=== PATIENT | female | born 1945 | race Caucasian/White ===

== ENCOUNTER → 2018-05-18 11:31 | Outpatient (CLI) | payer MEDICARE, OTHER, SELFPAY ==
--- NOTE | 2018-05-18 | DI.MRI.S_ITS ---
PROCEDURE: MR LUMBAR SPINE WO CON INDICATIONS: LUMBAR SPINE PAIN TECHNIQUE: Noncontrast sagittal T1 spin echo and T2 fast echo, sagittal STIR, axial T1 and T2 fast spin echo through the lumbar spine. In cases with scoliosis, additional coronal T2 fast spin echo may be performed. COMPARISON: [facility], , L-SPINE WITHOUT CONTRAST, 05/05/2015, 13:44. FINDINGS: Image quality: Excellent. Alignment and Curvature: No plain films are available for comparison, for numbering purposes. Thus, for the purposes of this examination, 5 lumbar type vertebral bodies will be presumed. This should be confirmed with plain films, prior to any lumbar spinal intervention. There is mild grade 1 retrolisthesis of L1 on L2 and L2 on L3. Mild grade 1 anterolisthesis of L4 on L5. Mild grade 1 retrolisthesis of L5 on S1. Bone Marrow: Marrow is of normal overall signal. No acute vertebral body compression fractures. Mild reactive signal within the endplates adjacent to the T11-T12, T12-L1, L1-L2, L2-L3, L3-L4, L4-L5, and L5-S1 intervertebral discs, which has progressed slightly. Large T11 hemangioma. Spinal Cord: Conus medullaris terminates at the lower L2 level. Visualized cord demonstrates normal signal and size. Paraspinous Soft Tissues: No paravertebral masses. T12-L1: Moderate disc desiccation and moderate diffuse disc bulge with superimposed small broad-based left far lateral protrusion. Moderate disc height loss. Mild facet hypertrophy. Mild canal stenosis. Moderate left and mild right foraminal stenosis. No change. L1-L2: Moderate disc height loss and desiccation. Mild diffuse disc bulge with superimposed broad-based right far lateral protrusion. Bilateral facet hypertrophy. Mild canal stenosis. Moderate right and mild left foraminal stenosis. No change. L2-L3: Mild disc desiccation. Moderate diffuse disc bulge. Mild disc height loss. Mild bilateral facet and ligamentum flavum hypertrophy. Mild canal stenosis. Mild foraminal stenosis bilaterally. No change. L3-L4: Moderate disc desiccation and diffuse disc bulge. Moderate facet hypertrophy bilaterally. Mild canal stenosis. Mild foraminal stenosis bilaterally. No change. L4-L5: Moderate disc height loss and desiccation. Moderate diffuse disc bulge. Moderate facet and ligamentum flavum hypertrophy. Increased, moderate canal stenosis. Increased, severe right foraminal stenosis. No change in moderate left foraminal stenosis. Mild flattening deformity of the right L4 nerve root within the neural foramen. L5-S1: Moderate disc desiccation and disc height loss. Moderate diffuse disc bulge. Moderate facet hypertrophy bilaterally. Mild canal stenosis. No change in moderate left and mild right foraminal stenosis. IMPRESSION: 1. Multilevel degenerative disc and facet disease, as well as ligamentum flavum hypertrophy. 2. Increased, moderate L4-L5 canal stenosis. Increased, severe right L4-L5 foraminal stenosis with flattening deformity of the right L4 nerve root within the neural foramen. Recommend correlation with clinical symptoms to ascertain relevance of this finding. 3. Otherwise, no significant change in multilevel canal and foraminal stenoses. Dictated by: Serina Angeles M.D. on 05/18/2018 at 13:49 Approved by: Serina Angeles M.D. on 05/18/2018 at 13:54
== END ==
PROVIDERS: Family Provider Physician Assistant Medical; PCP Physician Assistant Medical; Visit Provider Physical Medicine & Rehabilitation Pain Medicine
DX: M51.36 Other intervertebral disc degeneration, lumbar region (principal); M51.37 Other intervertebral disc degeneration, lumbosacral region; M48.061 Spinal stenosis, lumbar region without neurogenic claudication; M54.5 Low back pain
CPT/HCPCS: 72148

== ENCOUNTER → 2018-10-06 11:30 | Outpatient (CLI) | payer MEDICARE, OTHER, SELFPAY ==
--- NOTE | 2018-10-06 11:31 | DI.MG.S_ITS ---
BILATERAL DIGITAL SCREENING MAMMOGRAM 3D/2D WITH CAD: 10/06/2018 CLINICAL: Routine screening. Comparison is made to exams dated: 08/01/2017 mammogram - [facility], 12/29/2015 mammogram, 11/29/2014 mammogram, and 07/03/2013 mammogram - [facility]. There are scattered fibroglandular elements in both breasts. Current study was also evaluated with a Computer Aided Detection (CAD) system. No significant masses, calcifications, or other findings are seen in either breast. There has been no significant interval change. IMPRESSION: NEGATIVE There is no mammographic evidence of malignancy. A 1 year screening mammogram is recommended. This exam was interpreted at Station ID: [id number]. NOTE: For mammograms, a report in lay terms will be sent to the patient. Approximately 15% of breast malignancies will not be visualized mammographically. In the management of a palpable breast mass, a negative mammogram must not discourage biopsy of a clinically suspicious lesion. Electronically Signed By: Isabel rutledge/romario:10/08/2018 16:04:15 letter sent: Normal Exam ACR BI-RADS Category 1: Negative 3341F
== END ==
PROVIDERS: Family Provider Physician Assistant Medical; PCP Physician Assistant Medical; Visit Provider Physician Assistant Medical
DX: Z12.31 Encounter for screening mammogram for malignant neoplasm of breast (principal)
CPT/HCPCS: 77063; 77067

== ENCOUNTER → 2019-11-02 10:11 | Outpatient (CLI) | payer MEDICARE, OTHER, SELFPAY ==
--- NOTE | 2019-11-02 | DI.MG.S_ITS ---
BILATERAL DIGITAL SCREENING MAMMOGRAM 3D/2D WITH CAD: 11/02/2019 CLINICAL: Routine screening. Comparison is made to exams dated: 10/06/2018 mammogram, 08/01/2017 mammogram - [facility], and 12/29/2015 mammogram - [facility]. There are scattered fibroglandular elements in both breasts. Current study was also evaluated with a Computer Aided Detection (CAD) system. No significant masses, calcifications, or other findings are seen in either breast. There has been no significant interval change. IMPRESSION: NEGATIVE There is no mammographic evidence of malignancy. A 1 year screening mammogram is recommended. This exam was interpreted at Station ID: [id number]. NOTE: For mammograms, a report in lay terms will be sent to the patient. Approximately 15% of breast malignancies will not be visualized mammographically. In the management of a palpable breast mass, a negative mammogram must not discourage biopsy of a clinically suspicious lesion. Electronically Signed By: Brett cassidy/romario:11/04/2019 13:19:34 letter sent: Normal Exam ACR BI-RADS Category 1: Negative 3341F
== END ==
PROVIDERS: Family Provider Physician Assistant Medical; PCP Physician Assistant Medical; Visit Provider Physician Assistant Medical
DX: Z12.31 Encounter for screening mammogram for malignant neoplasm of breast (principal)
CPT/HCPCS: 77063; 77067

== ENCOUNTER → 2020-11-27 11:52 | Outpatient (CLI) | payer MEDICARE, OTHER, SELFPAY ==
--- NOTE | 2020-11-27 | DI.MG.S_ITS ---
BILATERAL DIGITAL SCREENING MAMMOGRAM 3D/2D WITH CAD: 11/27/2020 CLINICAL: Routine screening. Comparison is made to exams dated: 11/02/2019 mammogram, 10/06/2018 mammogram, and 08/01/2017 mammogram - [facility]. There are scattered fibroglandular elements in both breasts. Current study was also evaluated with a Computer Aided Detection (CAD) system. No significant masses, calcifications, or other findings are seen in either breast. There has been no significant interval change. IMPRESSION: NEGATIVE There is no mammographic evidence of malignancy. A 1 year screening mammogram is recommended. This exam was interpreted at Station ID: [id number]. NOTE: For mammograms, a report in lay terms will be sent to the patient. Approximately 15% of breast malignancies will not be visualized mammographically. In the management of a palpable breast mass, a negative mammogram must not discourage biopsy of a clinically suspicious lesion. Electronically Signed By: Ernst morel/romario:11/27/2020 12:20:57 letter sent: Normal Exam ACR BI-RADS Category 1: Negative 3341F
== END ==
PROVIDERS: Family Provider Physician Assistant Medical; PCP Physician Assistant Medical; Referring Provider Physician Assistant Medical; Visit Provider Physician Assistant Medical
DX: Z12.31 Encounter for screening mammogram for malignant neoplasm of breast (principal)
CPT/HCPCS: 77063; 77067

== ENCOUNTER → 2021-05-07 07:48 | Outpatient (CLI) | payer MEDICARE, OTHER, SELFPAY ==
--- NOTE | 2021-05-07 07:49 | DI.ECHO.S_ITS ---
[place] [facility]---------+ [facility] +---------+ : : [address] : [place] : : : : [id number] : : : : Phone: [phone] Echocardiogram Report + + :Name: OK OY Study Date: 05/07/2021 Height: 68 in : :[facility] ReadingLocation: Weight: 250 lb : : Gender: Female BSA: 2.2 m2 : :: 1945 Age: 75 yrs BP: 170/96 mmHg: :Reason For Study: Hypertension : :Ordering Physician: PAULINA, : :ZAINAB Performed By: Oleg Mart : :Referring: ZAINAB GALLARDO : + + Interpretation Summary The left ventricle is normal in size and wall thickness. Left ventricular systolic function is normal. The ejection fraction is estimated to be 60-65%. There are no focal wall motion abnormalities. Diastolic parameters suggest probable normal left ventricular diastolic function and normal filling pressures. The right ventricle is normal in size and function. The right ventricular systolic pressure is estimated to be at least 43 mmHg based on an estimated right atrial pressure of 15 mm Hg. The left atrium is moderately dilated. The right atrium is normal in size. There is no significant valvular heart disease. The aortic root is normal size. Procedure: A two-dimensional transthoracic echocardiogram with color flow and Doppler was performed. The study quality was technically adequate. There is no prior echocardiogram noted for this patient. The patient was in sinus rhythm with heart rates between 55-61 bpm during the exam. Left Ventricle: The left ventricle is normal in size and wall thickness. Left ventricular systolic function is normal. The ejection fraction is estimated to be 60-65%. There are no focal wall motion abnormalities. Diastolic parameters suggest probable normal left ventricular diastolic function and normal filling pressures. Right Ventricle: The right ventricle is normal in size and function. Atria: The left atrium is moderately dilated. The right atrium is normal in size. There is no Doppler evidence for an interatrial shunt. Mitral Valve: The mitral valve is normal in structure and function. There is trace mitral regurgitation. Aortic Valve: The aortic valve is normal in structure and function. There is trace aortic regurgitation. Tricuspid Valve: The tricuspid valve is normal in structure and function. There is mild tricuspid regurgitation. The right ventricular systolic pressure is estimated to be at least 43 mmHg based on an estimated right atrial pressure of 15 mm Hg. Pulmonic Valve: The pulmonic valve is not well seen, but is grossly normal. There is a trace or physiologic amount of pulmonic regurgitation. There is no significant valvular heart disease. Great Vessels: The aortic root is normal size. The dimensions of the ascending aorta are normal. The IVC is dilated (diameter is greater than 2.1 cm) and it collapses less than 50% with a sniff. This suggests a high right atrial pressure of 15 mm Hg. Pericardium/ Pleura There is no pericardial effusion. There is no pleural effusion. MMode/2D Measurements & Calculations LVIDd: 4.4 cm LVOT diam: 1.9 cm LVIDs: 3.0 cm Ao root diam: 3.3 cm FS: 32.9 % asc Aorta Diam: 3.1 cm IVSd: 0.89 cm LVPWd: 0.79 cm LV sibley. diameter/BSA (cm/m^2): 2.0 LV sys. diameter/BSA (cm/m^2): 1.3 LA A2 area: 29.2 cm2 RA long axis: 5.6 cm LA A4 area: 22.2 cm2 RA area: 19.2 cm2 LA length (vol): 5.8 cm RA vol: 55.9 ml LA vol: 94.4 ml RA : 24.9 ml/m2 LA vol index: 42.0 ml/m2 IVC diam: 2.2 cm TAPSE: 2.8 cm Doppler Measurements & Calculations Ao V2 max: 166.8 cm/sec LVOT Max Brice: 121.2 cm/sec Ao V2 mean: 117.4 cm/sec LV V1 max P.9 mmHg Ao max P.1 mmHg LV V1 VTI: 31.2 cm Ao mean P.1 mmHg JOLANTA(I,D): 2.1 cm2 Ao V2 VTI: 39.3 cm JOLANTA(V,D): 2.0 cm2 sev ratio: 0.79 JOLANTA indexed to BSA (cm^2/m^2): 0.95 MV E max brice: 120.2 cm/sec TR max brice: 264.2 cm/sec MV A max brice: 93.5 cm/sec TR max P.9 mmHg MV E/A: 1.3 PA pr(Accel): 28.5 mmHg Med Peak E' Brice: 9.9 cm/sec E/E' med: 12.1 Lat Peak E' Brice: 10.6 cm/sec E/E' lat: 11.3 E/e' average: 11.7 MV dec time: 0.23 sec SV(LVOT): 84.2 ml Reading Physician:02:08 PM
--- NOTE | 2021-05-07 07:50 | DI.MRI.S_ITS ---
PROCEDURE: MR HEAD/BRAIN WO/W CON INDICATIONS: APHASIA TECHNIQUE: Noncontrast axial T1 spin echo, axial T2 fast spin echo, sagittal and axial FLAIR, coronal T2 fast spin echo, axial gradient echo, axial diffusion and ADC through the brain. After the administration of contrast, axial and coronal T1 spin echo with fat saturation through the brain. COMPARISON: None. FINDINGS: Image quality: Excellent. CSF spaces: Basal cisterns are patent. No extra-axial fluid collections. Ventricles are normal in size and shape. Brain: No midline shift. No intracranial bleeds or masses. No abnormal intracranial enhancement. There is cerebral volume loss for age. There is periventricular white matter chronic small vessel ischemic change. The brainstem appears normal. Diffusion-weighted images demonstrate no acute ischemic insults. No chronic ischemic insults. Normal intravascular flow voids are present. Skull and face: Calvarial marrow is normal in signal. Orbits appear normal. Note is made of bilateral lens replacements. Sinuses: Sinuses and mastoids appear clear. IMPRESSION: Normal brain for age, with mild chronic small vessel ischemic change and mild brain parenchymal volume loss. No findings of acute or subacute infarction can be seen. No masses or abnormal enhancement can be seen. Dictated by: Lberon Giron M.D. on 05/07/2021 at 9:37 Approved by: Lebron Giron M.D. on 05/07/2021 at 9:38
== END ==
PROVIDERS: Family Provider Physician Assistant Medical; PCP Physician Assistant Medical; Referring Provider Physician Assistant Medical; Visit Provider Physician Assistant Medical
DX: R47.01 Aphasia (principal); I07.1 Rheumatic tricuspid insufficiency; I10 Essential (primary) hypertension
CPT/HCPCS: 70553; 93306

== ENCOUNTER → 2021-09-29 11:35 | Outpatient (CLI) | payer MEDICARE, OTHER, SELFPAY ==
[2021-09-29 14:46] LABS: COVID19 -Nasal RAPID Negative (Negative)
== END ==
PROVIDERS: Family Provider Physician Assistant Medical; PCP Physician Assistant Medical; Visit Provider Physician Assistant
DX: Z20.822 Contact with and (suspected) exposure to COVID-19 (principal)
CPT/HCPCS: 87635; C9803

== ENCOUNTER → 2021-10-01 08:39 | Outpatient (CLI) | payer MEDICARE, OTHER, SELFPAY ==
--- NOTE | 2021-10-01 | DI.NM.S_ITS ---
PROCEDURE: NM JAMIE PERF SPECT R&S PHARM Rest and pharmacological stress myocardial perfusion SPECT with gated imaging and ejection fraction RADIOPHARMACEUTICAL: 14.3 mCi Tc-99m tetrafosmin IV at rest and 26.2 mCi Tc-99m tetrafosmin IV at peak effect of pharmacological stress. [id number] was performed. INDICATIONS: Longstanding persistent atrial fibrillation TECHNIQUE: Radiopharmaceutical was injected at peak stress test, and also at rest. SPECT images were obtained. SPECT myocardial perfusion images were displayed in short axis, horizontal long axis, and vertical long axis views. Gated images were reviewed using [employer] software. COMPARISON: None. CARDIAC STRESS: A pharmacologic stress test was performed under the supervision of an attending staff, using an infusion of lexiscan 0.4m IV X1 . Hemodynamic data: There is normal blood pressure and heart rate response to pharmacologic stress. Symptoms: The patient denied anginal chest pain. Aminophylline: none EKG: Resting ECG showed rate controlled atrial fibrillation. No diagnostic changes of ischemia with lexiscan. FINDINGS: Raw data: There is good myocardial uptake of radiotracer. No significant motion artifacts. Rkyq-xg-wwlkz ratio is 0.31 (normal is less than 0.38 for tetrafosmin tracer). Left ventricle function: Gated images demonstrate normal left ventricular wall thickening. No segmental wall motion abnormalities. No transient ischemic dilation; TID is 0.91 (normal less than 1.3). Left ventricle resting end diastolic volume is 92 mL. Left ventricle stress ejection fraction is 67%; normal range is above 45%. Myocardial perfusion: There is normal distribution of activity in the right and left ventricular myocardium. No fixed or reversible perfusion defects. IMPRESSION: Low risk, normal pharmaceutical nuclear stress test 1) No perfusion evidence of ischemia or infarction. 2) Normal left ventricular size, wall motion, and systolic function (EF post stress 67%). 3) No ECG evidence of ischemia. 4) No angina during the study. 5) No prior nuclear stress test available for comparison. Dictated by: Christina Keith MD on 10/01/2021 at 16:55 Approved by: Christina Keith MD on 10/01/2021 at 16:57
== END ==
PROVIDERS: Family Provider Physician Assistant Medical; PCP Physician Assistant Medical; Referring Provider Internal Medicine Cardiovascular Disease; Visit Provider Internal Medicine Cardiovascular Disease
DX: I48.11 Longstanding persistent atrial fibrillation (principal)
CPT/HCPCS: 78452; 93017; A9502; J2785

== ENCOUNTER → 2022-06-02 12:55 | Outpatient (CLI) | payer MEDICARE, OTHER, SELFPAY ==
--- NOTE | 2022-06-02 | DI.MG.S_ITS ---
BILATERAL DIGITAL SCREENING MAMMOGRAM 3D/2D WITH CAD: 06/02/2022 CLINICAL: Routine screening. Comparison is made to exams dated: 11/27/2020 mammogram, 11/02/2019 mammogram, and 10/06/2018 mammogram - [facility]. There are scattered fibroglandular elements in both breasts. Current study was also evaluated with a Computer Aided Detection (CAD) system. No significant masses, calcifications, or other findings are seen in either breast. There has been no significant interval change. IMPRESSION: NEGATIVE There is no mammographic evidence of malignancy. A 1 year screening mammogram is recommended. Based on the Tyrer Cuzick model (a risk assessment model) the patient's lifetime risk is 2.8% and her 10 year risk is 2.8%. According to the ACR, ACS, and NCCN guidelines, an annual breast MRI exam along with mammogram is recommended if the patient's lifetime risk is 20% or greater. This exam was interpreted at Station ID: [id number]. NOTE: For mammograms, a report in lay terms will be sent to the patient. Approximately 15% of breast malignancies will not be visualized mammographically. In the management of a palpable breast mass, a negative mammogram must not discourage biopsy of a clinically suspicious lesion. Electronically Signed By: Homero cain/romario:06/02/2022 15:06:34 letter sent: Normal Exam ACR BI-RADS Category 1: Negative 3341F
== END ==
PROVIDERS: Family Provider Physician Assistant Medical; PCP Physician Assistant Medical; Referring Provider Physician Assistant Medical; Visit Provider Physician Assistant Medical
DX: Z12.31 Encounter for screening mammogram for malignant neoplasm of breast (principal)
CPT/HCPCS: 77063; 77067

== ENCOUNTER 2024-03-21 07:46 | Day surgery (SDC) | payer MEDICARE, OTHER, SELFPAY ==
[2024-03-21] MEDS: LACTATED RINGERS 1,000 ML 42 ML IV (08:23)
[2024-03-21 08:51] VITALS: BP 140/90; PULSE 105; RESP 18; TEMP 36.7; O2SAT 100
--- NOTE | 2024-03-21 09:23 | PM.HP.1 ---
History of Present Illness History of Present Illness Date Patient Seen: 03/21/24 Time Patient Seen: 09:24 Chief complaint: [facility] [place] Narrative: h/o colon polyps, last scope 5 years ago. Did not stop her Eliquis. no current symptoms. [facility] Social History Smoking Status: Former smoker alcohol intake: current Meds Home Medications and Allergies Home Medications Medication Instructions Recorded Confirmed Type ranitidine HCl 150 mg tablet 150 mg PO QDAY ##0 02/01/18 03/21/24 History amitriptyline 10 mg PO PRN Insomnia 03/21/24 History apixaban 5 mg tablet (Eliquis) 5 mg PO BID 03/21/24 03/21/24 History celecoxib 200 mg capsule 200 mg PO DAILY 03/21/24 03/21/24 History doxycycline monohydrate 100 mg 100 mg PO BID 03/21/24 03/21/24 History capsule metoprolol tartrate 25 mg tablet 25 mg PO BID 03/21/24 03/21/24 History pregabalin 200 mg capsule 200 mg PO BID 03/21/24 03/21/24 History rosuvastatin 20 mg tablet 20 mg PO ONCE PM 03/21/24 03/21/24 History tramadol 50 mg tablet 50 mg PO 03/21/24 History Allergies Allergy/AdvReac Type Severity Reaction Status Date / Time codeine [CODEINE] Allergy Intermediate ITCHING, Verified 03/21/24 08:26 NAUSEA Review of Systems Review of Systems ROS: Yes All systems reviewed with the patient and are negative except as otherwise documented Exam Vital Signs (past 8 hours): - 03/21/24 08:51 Temperature 98.1 F Pulse Rate 105 H Respiratory Rate 18 Blood Pressure 140/90 Pulse Oximetry 100 Oxygen Delivery Method Room Air Oxygen Delivery Method Room Air Const General: cooperative, healthy appearing and comfortable HENLA Head: normocephalic and atraumatic Eyes Sclera: sclerae normal Neck Neck: trachea midline and No JVD Resp Effort & Inspection: normal respiratory effort and able to speak in complete sentences Cardio Rate: regular rate Rhythm: abnormal rhythm (afib) GI Palpation: soft and No tender Skin General: atrophy and dry skin Neuro General: patient alert, patient awake and patient oriented x3 Cranial Nerves: tongue midline Psych Mental Status: mental status grossly normal Attitude: cooperative Judgment: judgment good Assessment & Plan Assessment & Plan narrative: History of colon polyps, actively anticoagulated. Plan: colonoscopy with anesthesia. Time Spent With Patient Time with patient: less than 30 minutes
--- NOTE | 2024-03-21 09:58 | PM.OP.COLON ---
Operative Date/Time/Diagnoses Date of procedure: 03/21/24 Time of procedure: 09:58 Pre-op diagnosis: History of colon polyps Post-op diagnosis: same Procedure & Clinicians Study performed: Colonoscopy with anesthesia Same procedure as scheduled: Yes Indications: History of colon polyps Surgeon: Mckenna Hayden Procedure Notes Procedure in detail: Preop diagnosis: History of colon polyps Postop diagnosis: Same Operative procedure: Colonoscopy with anesthesia Surgeon: Agueda Hayden MD Findings: Moderate-sized diverticuli of the descending colon. No polyps identified Procedure: Patient placed in a lateral position. Rectal exam performed showing normal tone no masses. Colonoscope inserted into the rectum and advanced to ileocecal valve with minimal difficulty. The prep was poor quality but the majority of the mucosal lining could be seen, however small polyps could have been overlooked. Retroflex was included in the rectum Impression: Diverticulosis of the descending colon of moderate size, no polyps Plan repeat colonoscopy in 5 years due to self history of colon polyps Findings: divertiulosis Post-procedure Recommendations: Colonoscopy in 5 years Follow up: as needed Disposition: PACU
[2024-03-21 10:01] VITALS: BP 121/69; PULSE 94; RESP 15; TEMP 36.6; O2SAT 97
[2024-03-21 10:05] VITALS: BP 108/68; PULSE 92; RESP 15; O2SAT 97
[2024-03-21 10:10] VITALS: BP 111/70; PULSE 82; RESP 15; O2SAT 99
[2024-03-21 10:18] VITALS: BP 135/80; PULSE 98; RESP 16; TEMP 36.6; O2SAT 98
== END 2024-03-21 10:34 | disposition home or self-care (01) ==
PROVIDERS: Family Provider Physician Assistant Medical; PCP Physician Assistant Medical; Referring Provider Surgery; Visit Provider Surgery
PROC: 0DJD8ZZ Inspection of Lower Intestinal Tract, Via Natural or Artificial Opening Endoscopic (ICD-10-PCS; CPT 45378; principal; 2024-03-21 08:45)
DX: Z12.11 Encounter for screening for malignant neoplasm of colon (principal); Z86.010 Personal history of colon polyps; K57.30 Diverticulosis of large intestine without perforation or abscess without bleeding
CPT/HCPCS: G0105; J2704

== ENCOUNTER → 2025-01-06 08:28 | Outpatient (CLI) | payer MEDICARE, OTHER, SELFPAY ==
--- NOTE | 2025-01-06 08:30 | DI.ECHO.S_ITS ---
[place] [facility]---------+ [facility] : : [address] : : [place] : : [id number] : : Phone: [phone] Echocardiogram Report + + :Name: OK YO Study Date: 01/06/2025 Height: 67 in : :[facility] ReadingLocation: Weight: 250 lb : : Gender: Female BSA: 2.2 m2 : :: 1945 Age: 79 yrs BP: 152/92 mmHg: :Reason For Study: ATRIAL FIBRILLATION : :Ordering Physician: ELIZABETH, : :DENISE Performed By: Abhinav Rodriguez : :Referring: DENISE KEITH : + + Interpretation Summary 1) Normal left ventricular thickness, size, wall motion, and systolic function (EF 55-60%). 2) Mildly enlarged right ventricle with normal function. 3) Severe left atrial enlargement. 4) There is moderate tricuspid regurgitation. 5) The right ventricular systolic pressure is estimated to be at least 53 mmHg based on an estimated right atrial pressure of 8 mm Hg. 5) Compared to the Echo done 05/07/2021, severe left atrial enlargement is present on this study. Procedure: A two-dimensional transthoracic echocardiogram with color flow and Doppler was performed. The study quality was technically good. Comparison is made with the echocardiogram of 05/07/2021. The patient was in atrial fibrillation with heart rates between 76-103 bpm during the exam. Left Ventricle: The left ventricle is normal in size. There is normal left ventricular wall thickness. There is no ventricular septal defect visualized. The ejection fraction is estimated to be 55-60%. There are no focal wall motion abnormalities. Diastolic function could not be accurately assessed due to atrial fibrillation. Right Ventricle: The right ventricle is mildly dilated. The right ventricular systolic function is normal. Atria: The left atrium is severely dilated. The right atrium is moderately dilated. There is no Doppler evidence for an interatrial shunt. Mitral Valve: There is mild mitral annular calcification. The mitral valve leaflets appear normal. There is no evidence of stenosis, fluttering, or prolapse. There is mild mitral regurgitation. Aortic Valve: The aortic valve is trileaflet. The aortic valve opens well. There is no aortic valve stenosis. No aortic regurgitation is present. Tricuspid Valve: The tricuspid valve leaflets are thin and pliable. There is moderate tricuspid regurgitation. The right ventricular systolic pressure is estimated to be at least 53 mmHg based on an estimated right atrial pressure of 8 mm Hg. Pulmonic Valve: The pulmonic valve leaflets are thin and pliable; valve motion is normal. There is no pulmonic valvular regurgitation. Great Vessels: The aortic root is normal size. The dimensions of the ascending aorta are normal. The pulmonary artery is normal size. The IVC is dilated (diameter is greater than 2.1 cm) yet it collapses greater than 50% with a sniff. This suggests a right atrial pressure of 8 mm Hg. Pericardium/ Pleura There is no pericardial effusion. There is no pleural effusion. MMode/2D Measurements & Calculations LVIDd: 4.2 cm LVOT diam: 1.9 cm LVIDs: 3.0 cm Ao root diam: 3.4 cm FS: 28.1 % asc Aorta Diam: 3.2 cm EPSS: 0.71 cm IVSd: 0.94 cm LVPWd: 0.94 cm LV sibley. diameter/BSA (cm/m^2): 1.9 LV sys. diameter/BSA (cm/m^2): 1.4 LA A2 area: 36.0 cm2 RA long axis: 6.8 cm LA A4 area: 33.2 cm2 RA area: 28.1 cm2 LA length (vol): 6.9 cm RA vol: 98.7 ml LA vol: 145.9 ml RA : 44.4 ml/m2 LA vol index: 65.6 ml/m2 IVC diam: 2.6 cm RVD1 (basal): 4.2 cm RVD2 (mid): 3.0 cm TAPSE: 2.0 cm Doppler Measurements & Calculations Ao V2 max: 146.1 cm/sec LVOT Max Brice: 116.2 cm/sec Ao V2 mean: 107.9 cm/sec LV V1 max P.4 mmHg Ao max P.5 mmHg LV V1 VTI: 26.4 cm Ao mean P.0 mmHg JOLANTA(I,D): 2.8 cm2 Ao V2 VTI: 26.3 cm JOLANTA(V,D): 2.2 cm2 sev ratio: 1.0 JOLANTA indexed to BSA (cm^2/m^2): 1.3 MV E max brice: 124.5 cm/sec TR max brice: 334.9 cm/sec MV A max brice: 33.0 cm/sec TR max P.9 mmHg MV E/A: 3.8 PA V2 max: 55.9 cm/sec Med Peak E' Brice: 10.6 cm/sec PA V2 mean: 40.9 cm/sec E/E' med: 11.7 PA mean P.73 mmHg Lat Peak E' Brice: 16.4 cm/sec PA pr(Accel): 29.3 mmHg E/E' lat: 7.6 E/e' average: 9.6 MV dec time: 0.12 sec SV(LVOT): 73.3 ml Reading Physician:04:08 PM
[2025-01-06 09:54] LABS: Hematocrit 40.4 % (36-46); Hemoglobin 13.6 g/dL (12.0-16.0); Mean Corpuscular HGB Conc 33.6 % (30-36); Mean Corpuscular Hemoglobin 32.4 PG (26-34); Mean Corpuscular Volume 96.3 fL (80-100); Platelet Count 116 X10^3/uL (150-400); Red Blood Cell Count 4.19 X10^6/uL (4.0-5.2); Red Cell Distribution Width 13.6 % (11.6-14.8); White Blood Cell Count 6.3 X10^3/uL (4.5-11.0)
[2025-01-06 10:17] LABS: BUN Creatinine Ratio 25.6 (6-22); Blood Urea Nitrogen 22 mg/dL (7-17); Calcium 9.7 mg/dL (8.4-10.2); Carbon Dioxide 29 mmol/L (22-32); Chloride 105 mmol/L (98-107); Cholesterol 146 mg/dL (140-199); Estimated Glomerular Filt Rate > 60 mL/min (>60); Glucose 63 mg/dL (80-110); HDL Cholesterol 83 mg/dL (40-60); HEMOLYSIS < 15 (0-50); LDL Cholesterol Calculated 52 mg/dL (<100); Potassium 4.4 mmol/L (3.4-5.1); Sodium 140 mmol/L (137-145); Triglycerides 53 mg/dL (35-150)
== END ==
PROVIDERS: Family Provider Physician Assistant Medical; PCP Physician Assistant Medical; Referring Provider Internal Medicine Cardiovascular Disease; Visit Provider Internal Medicine Cardiovascular Disease
DX: I08.1 Rheumatic disorders of both mitral and tricuspid valves (principal); I48.11 Longstanding persistent atrial fibrillation; E78.5 Hyperlipidemia, unspecified; R06.09 Other forms of dyspnea; I10 Essential (primary) hypertension
CPT/HCPCS: 36415; 80048; 80061; 85027; 93306

== ENCOUNTER → 2025-05-16 15:00 | Outpatient (CLI) | payer MEDICARE, OTHER, SELFPAY ==
--- NOTE | 2025-05-16 15:12 | EKG_ITS ---
[address] [address] Test Date: 2025-05-16 Pat Name: Padma Weathers Department: [facility] Room: Gender: Female Non Emergency Services Ambulance Driver: OMAR : 1945 Requested By: Order Number: [id number] Reading MD: Charlie Chappell Measurements Intervals [place] Rate: 70 P: ME: QRS: -11 QRSD: 90 T: -12 QT: 370 QTc: 399 Interpretive Statements Atrial fibrillation Nonspecific T wave abnormality Electronically Signed On 05-30-2025 8:11:33 PDT by Charlie Chappell
[2025-05-16 16:01] LABS: Add Manual Diff / Slide Review NO; Hematocrit 41.5 % (36-46); Hemoglobin 14.4 g/dL (12.0-16.0); Lymphocytes Absolute Auto 2600 /uL (1100-4500); Mean Corpuscular HGB Conc 34.6 % (30-36); Mean Corpuscular Hemoglobin 33.9 PG (26-34); Mean Corpuscular Volume 97.9 fL (80-100); Platelet Count 127 X10^3/uL (150-400)
[2025-05-16 16:09] LABS: Hemoglobin A1C% w Est Avg Glu 4.9 % (4.0-6.0)
[2025-05-16 16:23] LABS: Albumin 4.6 g/dL (3.5-5.0); Blood Urea Nitrogen 22 mg/dL (7-17); Calcium 9.5 mg/dL (8.4-10.2); Carbon Dioxide 27 mmol/L (22-32); Chloride 104 mmol/L (98-107); Estimated Glomerular Filt Rate > 60 mL/min (>60); Glucose 75 mg/dL (70-99); HEMOLYSIS < 15 (0-50); Potassium 4.2 mmol/L (3.4-5.1); Sodium 140 mmol/L (137-145)
[2025-05-16 16:31] LABS: Prealbumin 19.6 mg/dL (17.6-36.0)
[2025-05-16 16:40] LABS: Vitamin D 25 Hydroxy (D3) 98.3 ng/mL (30.0-100.0)
== END ==
PROVIDERS: Family Provider Physician Assistant Medical; PCP Physician Assistant Medical; Referring Provider Orthopaedic Surgery Adult Reconstructive Orthopaedic Surgery; Visit Provider Orthopaedic Surgery Adult Reconstructive Orthopaedic Surgery
DX: Z01.818 Encounter for other preprocedural examination (principal); E11.9 Type 2 diabetes mellitus without complications; E55.9 Vitamin D deficiency, unspecified; Z01.812 Encounter for preprocedural laboratory examination
CPT/HCPCS: 36415; 80048; 82040; 82306; 83036; 84134; 85025; 93005

== ENCOUNTER 2025-09-11 09:45 | Outpatient (RCR) | payer MEDICARE, OTHER, SELFPAY ==
--- NOTE | 2025-06-30 17:25 | PT.OPPOC ---
Physical, Occupational & Speech Therapy At [facility] Current Diagnoses Lipomatosis, not elsewhere classified (06/30/25) Lymphedema, not elsewhere classified (06/30/25) Unilateral primary osteoarthritis, left hip (06/30/25) Visit Care Team Role Provider Type Kari Nagel PA-C Family Provider Non-Staff Primary Care Provider Specialty: Medical Address: [address] [place] [address] [address], [place], [address] Email: Cameron Bishop MD Attending Provider Physician Referring Provider Specialty: Orthopedics Orthopedic Surgery Address: [address] [place] [address], [phone] Fax: Email: [email or web address] Plan Of Care PT OP: Lymphedema Lower Extremity Start: 06/30/25 14:33 Freq: Status: Active Protocol: Document 06/30/25 14:34 SAK (Rec: 06/30/25 15:38 SAK Laptop) Out-Patient Physical Therapy Visit Information Visit Information Visit Type Initial Evaluation Visit Start Time 14:34 Visit Stop Time 16:00 Visit Number 1 Evaluation Information Evaluation Date 06/30/25 Precautions Precautions recent wounds on shins history falls arthritis Current Condition History of Current Condition Onset Date 2012 Current Complaints bilateral LE lymphedema History of Current Series of surgeries on left foot [id number], as that Condition healed swelling came on, never went away. Also history shanae knees replacements, right AMMON, fractured right hip 2022 ORIF, then revision done 2023. Hoping to have left AMMON soon due to severe pain, using cane to walk, reluctant to use walker. Saw wound care at [facility] recently, wounds on shins healed, has velcro wrap garments shanae ankle to knee. Reports feet not affected by swelling but is swollen from ankles up. . Down 30 lbs, trying to lose another 30. Goes to water aerobics 2x/wk when can. Elevating doesn't improve the swelling. Also walks some for exercise wears compression. Prior Treatments and as above Tests Future Testing and anticipated left AMMON soon by Dr. Bishop Treatments Planned Treatment Goals Patient/Caregiver be able to get left AMMON and be able to manage her edema Goals Patient Questionnaires Lymphedema Life Impact Score Lymphedema Score 48 OP-PT Pain Assessment Location left hip Pain Intensity 5 Posture Evaluation Position Standing Weight Distribution Weight Shifted Right Knee Posture (L) Genu Valgus,(R) Genu Valgus,(L) Genu Recurvatum,(R) Genu Recurvatum Ankle/Foot Posture (L) Pronated,(R) Pronated Foot Arch (L) Low Arch,(R) Low Arch Palpation Assessment Location shanae LE's and UE's Palpation Findings Edema,Tenderness Palpation Details multiple palpable fibrotic nodules UE's and LE's consistent with lipedema Skin Assessment Edema Assessment shanae LE's, UE's Edema Type Non-Pitting Edema Appearance Dimpled,Discolored,Puffy Subjective Edema Tightness Description Hip Goniometric Range of Motion Hip Measured in Degrees shanae Hip ROM WFL Yes Comments pain toward end ranges shanae Knee Goniometric Range of Motion Knee Measured in Degrees shanae Knee ROM WFL Yes Ankle and Foot Goniometric Range of Motion Ankle and Foot Measured in Degrees shanae Ankle/Foot ROM WFL Yes Special Tests Other Special Tests Special Tests Stemmer sign positive shanae feet Lymphedema Measurements Lower Extremity Circumference Measurements Right Affected MT Heads 23.2 cm Mid-foot 22.5 cm Medial Malleolus 27.3 cm 10 cm From Medial 37 cm Malleolus 20 cm From Medial 45.3 cm Malleolus 30 cm From Medial 49.3 cm Malleolus 40 cm From Medial 49.3 cm Malleolus 50 cm From Medial 59.4 cm Malleolus 60 cm From Medial 64 cm Malleolus 70 cm From Medial 71 cm Malleolus 80 cm From Medial 76.5 cm Malleolus Knee Joint 52 cm Left Affected MT Heads 22.7 cm Mid-foot 22.4 cm Medial Malleolus 26.3 cm 10 cm From Medial 39 cm Malleolus 20 cm From Medial 43.8 cm Malleolus 30 cm From Medial 46.2 cm Malleolus 40 cm From Medial 50.4 cm Malleolus 50 cm From Medial 57 cm Malleolus 60 cm From Medial 61.2 cm Malleolus 70 cm From Medial 68 cm Malleolus 80 cm From Medial 87.9 cm Malleolus Knee Joint 51 cm Lymphedema Treatment Manual Lymphatic Drainage Location for shanae LE lipo-lymphedema Comments with patient education technique, issued written handout and given online resource Lymphedema Wrapping Body Location shanae LE's Materials Bioflect XL loaner garment issued; patient assisted in donning, instructed to remove if painful or skin irritated. Can layer with velcro compression wraps. Also issued loaner L donning gloves. Sequential Lymphedema Exercises Comments instructed importance of therapeutic exercise, aquatic exercise especially benficial Compression Garment Assessment Compression Garment educated in correct fit current velcro compression Assessment Details wraps (L and R Ready Wrap) and need to adjust with most compression distally, decreasing proximally. Good fit of loaner Bioflect XL Physical Therapy Assessment Rehab Potential Rehabilitation Good Potential Evaluation Complexity Number of Personal 1-2 Factors/ Comorbidities Number of Body 3 Systems Impaired Clinical Evolving Presentation at Evaluation Impairments Impairments Edema,Pain Goals Two Impairment Lymphedema Life Impact Scale 54% Short Term Goal (STG Decrease score to no greater than 40% as measure of ) improved function and quality of life STG Duration 07/30/25 Assistant Director Of Security Goal (LTG) Decrease score to no greater than 20% as measure of improved function and quality of life LTG Duration 09/29/25 One Impairment lipo-lymphedema shanae LE's Short Term Goal (STG Patient will be instructed in all aspects of lipo- ) lymphedema self-care to include skin care, elevation, self-massage, self-bandaging/compression options, and lipo-lymphedema exercises. STG Duration 07/30/25 [facility]cf Goal (LTG) Decrease patient?s lipo-lymphedema to a stable level ( no increase or decrease greater than 1 cm over the course of 1 week), patient to be independent with all aspects of self-care for lipo-lymphedema, and will obtain appropriate compression garment for lipo- lymphedema management in the home. LTG Duration 09/29/25 Assessment Summary Assessment Patient presents to PT with function-limiting edema with signs and symptoms consistent with lipo-lymphedema . She has an extensive orthopedic surgery history in her LE's which she reports feeling precipitated her LE edema. She is currently awaiting approval and scheduling for a left AMMON, but was sent to this PT for evaluation and treatment of her lymphedema prior to surgery. Her signs and symptoms as above consistent with both lipedema and lymphedema in her LE's and abdomen and after PT evaluation extensive education provided verbally and with written and online resources provided. Part of the patient education was importance of compression and she was issued a loaner pair of Bioflect compression and donning gloves for trial. I feel she would benefit from physical therapy to address her lipo-lymphedema prior to her left AMMON surgery and then for rehab and edema management s/p AMMON surgery. I feel she will benefit from AMMON due the severity of her hip pain and limitations in her mobility; improved activity tolerance and mobility will be helpful for her lipo- lymphedema. Donning compression is already a challenge for this patient due to the arthritis in her hands and limited mobility of her left hip and compression post- op will likely need to be modified, maybe just wearing the lower leg compression wraps initially. In the future she may want to consult with vascular specialist as well as a lipedema surgeon. POC was discussed and patient was in agreement. Physical Therapy Plan Frequency and Duration Frequency of 20 Treatment Duration of 12 treatment (weeks) Plan of Care Start 06/30/25 Date Plan of Care End 09/29/25 Date Next Visit Focus/Plan Next Note Type Treatment Note Next Visit Plan Review treatment components of lipo-lymphedema, evaluate response to Bioflect including taking circumferential measurements. Provide MLD, instruct in ther ex, consider lymphedema bandaging if indicated, continue patient education. Plan of Care Dates Plan of Care Start Date 06/30/25 Plan of Care End Date 09/29/25 Electronically Signed by: Michaela Koroma, PT 06/30/25 [id number] If you are in agreement with this Plan of Care, please return a signed and dated copy. I have reviewed this Plan of Care and certify that the skilled therapy services above are required to meet the patient?s needs. Physician Signature Date Printed Name and Credentials Clinical Instructor Signature Printed Name and Credentials
--- NOTE | 2025-07-07 16:29 | PT.OTN ---
Current Diagnoses Lipomatosis, not elsewhere classified (07/07/25) Lymphedema, not elsewhere classified (07/07/25) Unilateral primary osteoarthritis, left hip (07/07/25) Physical Therapy Treatment Note PT OP: Lymphedema Lower Extremity Start: 06/30/25 14:33 Freq: Status: Active Protocol: Document 07/07/25 14:28 SAK (Rec: 07/07/25 15:08 SAK Laptop) Out-Patient Physical Therapy Visit Information Visit Information Visit Type Initial Evaluation Visit Start Time 14:31 Visit Stop Time 15:58 Visit Number 2 Precautions Precautions recent wounds on shins history falls arthritis OP-PT Subjective Patient Comments Patient Comments Unable to wear the Bioflect due to pain in hip and hands, too difficult to don without assistance. When removed after PT assisted, couldn't really see a difference. Patient reports she is miserable with pain , really wants to get AMMON as soon as she can. She has a sister coming to stay with her first of August and is hoping surgery can be just prior so her sister available to help her with recovery. Therapeutic Exercises Supine Exercises hip ab Equipment Used L2 TB Reps/Minutes 10x SAQ Reps/Minutes 10x5 supine clam Reps/Minutes 10 ball squeeze Reps/Minutes 10 bridge Reps/Minutes 10 quad sets Reps/Minutes 10x Gluteal sets Reps/Minutes 10x Lymphedema Treatment Manual Lymphatic Drainage Location for shanae LE lipo-lymphedema Comments reviewed technique for home Lymphedema Wrapping Body Location shanae LE's Materials Size G Tricofix, Artiflex (3), Comprilan (8x2, 10x2, 12 ) Other instrsuction patient in self bandaging Sequential Lymphedema Exercises Comments ther ex as above Compression Garment Assessment Compression Garment patient did not tolerate donning and doffing Bioflect, Assessment Details advised order larger size for trial Patient Education Lymphedema Pathology reviewed Lymphedema reviewed Prevention Lymphedema reviewed Precautions Compression Garments reviewed Self Manual reviewed Lymphatic Drainage Sequential reviewed Lymphedema Exercises Physical Therapy Assessment Impairments Impairments Edema,Pain Other Concerns Barriers to severe left hip pain and moderate OA bilateral hands Rehabilitation making donning compression garments difficult Goals Two Impairment Lymphedema Life Impact Scale 54% Short Term Goal (STG Decrease score to no greater than 40% as measure of ) improved function and quality of life STG Duration 07/30/25 Assisted Goal (LTG) Decrease score to no greater than 20% as measure of improved function and quality of life LTG Duration 09/29/25 One Impairment lipo-lymphedema shanae LE's Short Term Goal (STG Patient will be instructed in all aspects of lipo- ) lymphedema self-care to include skin care, elevation, self-massage, self-bandaging/compression options, and lipo-lymphedema exercises. STG Duration 07/30/25 Assisted Goal (LTG) Decrease patient?s lipo-lymphedema to a stable level ( no increase or decrease greater than 1 cm over the course of 1 week), patient to be independent with all aspects of self-care for lipo-lymphedema, and will obtain appropriate compression garment for lipo- lymphedema management in the home. LTG Duration 09/29/25 Assessment Summary Assessment Patient c/o frustration with severity of left hip pain. Instructed in LE ther ex mostly isometric for improved tolerance; for strengthening and to facilitate lymphatic flow. Receptive to bandaging shanae LE's today with compression bandaging; applied with patient education technique after MLD with pt LE's elevated. Nu-step x 5 min end of session for further facilitation of lymphatic flow. Patient instructed to keep bandaging on 23hr/day and reapply; recommmend for 2 weeks. Remove bandaging if painful, or if feet swell with bandaging. Also recommended obtain snug shorts to wear over bandaging to prevent sliding down. Patient demonstrated good understanding. Physical Therapy Plan Frequency and Duration Frequency of 20 Treatment Duration of 12 treatment (weeks) Plan of Care Start 06/30/25 Date Plan of Care End 09/29/25 Date Next Visit Focus/Plan Next Note Type Treatment Note Next Visit Plan Evaluate response to compression bandaging. Continue CDT.
--- NOTE | 2025-07-15 16:20 | PT.OTN ---
Current Diagnoses Lipomatosis, not elsewhere classified (07/15/25) Lymphedema, not elsewhere classified (07/15/25) Unilateral primary osteoarthritis, left hip (07/15/25) Physical Therapy Treatment Note PT OP: Lymphedema Lower Extremity Start: 06/30/25 14:33 Freq: Status: Active Protocol: Document 07/15/25 14:31 SAK (Rec: 07/15/25 15:04 SAK Laptop) Out-Patient Physical Therapy Visit Information Visit Information Visit Type Treatment Note Visit Start Time 14:31 Visit Stop Time 15:56 Visit Number 3 Precautions Precautions recent wounds on shins history falls arthritis Current Condition History of Current Condition Onset Date 2012 Current Complaints bilateral LE lymphedema History of Current Series of surgeries on left foot [phone], as that Condition healed swelling came on, never went away. Also history shanae knees replacements, right AMMON, fractured right hip 2022 ORIF, then revision done 2023. Hoping to have left AMMON soon due to severe pain, using cane to walk, reluctant to use walker. Saw [facility] care at [facility] recently, wounds on shins healed, has velcro wrap garments shanae ankle to knee. Reports feet not affected by swelling but is swollen from ankles up. . Down 30 lbs, trying to lose another 30. Goes to water aerobics 2x/wk when can. Elevating doesn't improve the swelling. Also walks some for exercise wears compression. Prior Treatments and as above Tests Future Testing and anticipated left AMMON soon by Dr. Bishop Treatments Planned OP-PT Subjective Patient Comments Patient Comments Got 2XL Bioflect, can don independently. Hasn't self bandaged Lymphedema Measurements Lower Extremity Circumference Measurements Right Affected MT Heads 22 cm Mid-foot 22.2 cm Medial Malleolus 26.5 cm 10 cm From Medial 38.3 cm Malleolus 20 cm From Medial 44.8 cm Malleolus 30 cm From Medial 48.5 cm Malleolus 40 cm From Medial 45.3 cm Malleolus 50 cm From Medial 57 cm Malleolus 60 cm From Medial 55.4 cm Malleolus 70 cm From Medial 64.5 cm Malleolus 80 cm From Medial 79 cm Malleolus Knee Joint 47.8 cm Left Affected MT Heads 21.3 cm Mid-foot 22 cm Medial Malleolus 25.3 cm 10 cm From Medial 39.5 cm Malleolus 20 cm From Medial 42.5 cm Malleolus 30 cm From Medial 44.9 cm Malleolus 40 cm From Medial 45.8 cm Malleolus 50 cm From Medial 53.8 cm Malleolus 60 cm From Medial 57.2 cm Malleolus 70 cm From Medial 68 cm Malleolus 80 cm From Medial 89.3 cm Malleolus Knee Joint 46.2 cm - reduction in measurements 0.4-0.5 cm after 25 min sequential pneumatic pump Therapeutic Exercises Supine Exercises hip ab Equipment Used L2 TB Reps/Minutes 10x SAQ Reps/Minutes 10x5 supine clam Reps/Minutes 10 ball squeeze Reps/Minutes 10 bridge Reps/Minutes 10 quad sets Reps/Minutes 10x Gluteal sets Reps/Minutes 10x Lymphedema Treatment Manual Lymphatic Drainage Location for shanae LE lipo-lymphedema Comments reviewed technique for home Airos 6 seqeuntial pneumatic pump to left leg 25 min during MLD to right; noted decrease in circumferential measurements after Lymphedema Wrapping Body Location shanae LE's Materials Size G Tricofix, Artiflex (3), Comprilan (8x2, 10x2, 12 ) Other instrsuction patient in self bandaging Sequential Lymphedema Exercises Comments verbal review Compression Garment Assessment Compression Garment good fit with pt ability to don size 2XL Bioflect Assessment Details compression garment ordered independently, states improving ability to don. Patient Education Sequential reviewed Lymphedema Exercises Physical Therapy Assessment Other Concerns Barriers to severe left hip pain and moderate OA bilateral hands Rehabilitation making donning compression garments difficult Goals Two Impairment Lymphedema Life Impact Scale 54% Short Term Goal (STG Decrease score to no greater than 40% as measure of ) improved function and quality of life STG Duration 07/30/25 Correction Goal (LTG) Decrease score to no greater than 20% as measure of improved function and quality of life LTG Duration 09/29/25 One Impairment lipo-lymphedema shanae LE's Short Term Goal (STG Patient will be instructed in all aspects of lipo- ) lymphedema self-care to include skin care, elevation, self-massage, self-bandaging/compression options, and lipo-lymphedema exercises. STG Duration 07/30/25 Senior Physical Therapist Goal (LTG) Decrease patient?s lipo-lymphedema to a stable level ( no increase or decrease greater than 1 cm over the course of 1 week), patient to be independent with all aspects of self-care for lipo-lymphedema, and will obtain appropriate compression garment for lipo- lymphedema management in the home. LTG Duration 09/29/25 Progress Towards Goals Progress Towards Progressing Toward Goals Goals Assessment Summary Assessment Patient reporting compliance to HEP, obtained larger size Bioflect and is wearing, bandaging didn't feel doable. All circumfernetial measurements shanae LE's decreased except at ankle cuff region increased with some increased discoloration/bruising noted. Decreased at ankle cuff after 25 min Airos 6 sequential pneumatic pump on left during MLD right. Patient interested in obtaining pump for home use; having arthritis and pain and hands, and pain in shoulder make self MLD difficult and reports fatigued from donning Bioflect. Encouraged use of Comprilan layered over Bioflect at ankle cuff region for increased compression and encouraged vascular consult with Dr. Arizmendi at [facility]. Possible discoloration due to bruising from donning Bioflect. Doing self MLD. Patient highly motivated and compliant to self care. Physical Therapy Plan Next Visit Focus/Plan Next Note Type Treatment Note Next Visit Plan Continue CDT, evaluate response to bandaging ankle cuff and lower leg for further facilitation of lymphatic flow.
--- NOTE | 2025-08-13 12:59 | PT.OTN ---
Current Diagnoses Lipomatosis, not elsewhere classified (08/13/25) Lymphedema, not elsewhere classified (08/13/25) Unilateral primary osteoarthritis, left hip (08/13/25) Physical Therapy Treatment Note PT OP: Lymphedema Lower Extremity Start: 06/30/25 14:33 Freq: Status: Active Protocol: Document 08/13/25 10:49 AB (Rec: 08/13/25 11:27 AB [id number]) Out-Patient Physical Therapy Visit Information Visit Information Visit Start Time 10:50 Visit Stop Time 12:23 Visit Number 4 Number of SOUS CHEF Visits 1 Progress Note Due 07/30/25 Precautions Precautions recent wounds on shins history falls arthritis OP-PT Subjective Patient Comments Patient Comments Patient reports wearing compression knee high over Bioflect LE garment vs compralin as this is hard for her to place. Lymphedema Measurements Lower Extremity Circumference Measurements Left Affected MT Heads 22.3 cm Medial Malleolus 24.9 cm 10 cm From Medial 40.9 cm Malleolus 30 cm From Medial 46.1 cm Malleolus 50 cm From Medial 57.8 cm Malleolus Therapeutic Exercises Supine Exercises hip ab Reps/Minutes X 10 w/o band Comments VC for avoiding toe out SAQ Reps/Minutes 10x5 bridge Reps/Minutes 10 Gluteal sets Reps/Minutes 10x Standing Exercises mini squat Side bilateral Reps/Minutes 10 Comments VC for buttocks back Manual Therapy Treatment Consent Patient gave verbal Yes consent for manual treatment Soft Tissue Mobilization scar tissue R LE lateral thigh Mobilization Type Cross-Friction,Rolling Intensity/Depth Moderate Body Position Hooklying Lymphedema Treatment Manual Lymphatic Drainage Location for shanae LE lipo-lymphedema Comments reviewed technique for home Airos 6 seqeuntial pneumatic pump to left leg 20 min partially during MLD to right; pump to 45 mmHg Lymphedema Wrapping Materials Bioflect pants and compression socks Patient donning Other Patient ed self MLD throughout Compression Pump Treatment Treatment Location L Le Pressure Amount ( 45 mmHg) (mmHG) Treatment Comments during R LE MLD and STM to scar tissue and 12 min without MLD for 20 min total Physical Therapy Assessment Goals Two Impairment Lymphedema Life Impact Scale 54% Short Term Goal (STG Decrease score to no greater than 40% as measure of ) improved function and quality of life STG Duration 07/30/25 Group Home Goal (LTG) Decrease score to no greater than 20% as measure of improved function and quality of life LTG Duration 09/29/25 One Impairment lipo-lymphedema shanae LE's Short Term Goal (STG Patient will be instructed in all aspects of lipo- ) lymphedema self-care to include skin care, elevation, self-massage, self-bandaging/compression options, and lipo-lymphedema exercises. STG Duration 07/30/25 Group Home Goal (LTG) Decrease patient?s lipo-lymphedema to a stable level ( no increase or decrease greater than 1 cm over the course of 1 week), patient to be independent with all aspects of self-care for lipo-lymphedema, and will obtain appropriate compression garment for lipo- lymphedema management in the home. LTG Duration 09/29/25 Assessment Summary Assessment L LE decreased slightly less than 1 cm to 2+ cm for 5 measurements: post use of pump MT 21.2 cm med malleolus 24 cm, 10 cm 39.1, 30 cm 44.1, 50 cm 54.9 cm. Patient able to bettina Bioflect pants to bra line and compression socks bilateral LE Physical Therapy Plan Frequency and Duration Frequency of 20 Treatment Duration of 12 treatment (weeks) Plan of Care Start 06/30/25 Date Plan of Care End 09/29/25 Date Next Visit Focus/Plan Next Note Type Treatment Note Next Visit Plan Continue CDT, evaluate response to bandaging ankle cuff and lower leg for further facilitation of lymphatic flow. Do paperwork for sequential pneumatic pump, pants style.
--- NOTE | 2025-08-19 16:04 | PT.OTN ---
Current Diagnoses Lipomatosis, not elsewhere classified (08/19/25) Lymphedema, not elsewhere classified (08/19/25) Unilateral primary osteoarthritis, left hip (08/19/25) Physical Therapy Treatment Note PT OP: Lymphedema Lower Extremity Start: 06/30/25 14:33 Freq: Status: Active Protocol: Document 08/19/25 14:30 SAK (Rec: 08/19/25 15:02 SAK Laptop) Out-Patient Physical Therapy Visit Information Visit Information Visit Start Time 14:34 Visit Stop Time 15:15 Visit Number 5 Number of NON FOOD RECEIVING CLERK Visits 0 Precautions Precautions recent wounds on shins history falls arthritis Current Condition History of Current Condition Onset Date 2012 Current Complaints bilateral LE lymphedema History of Current Series of surgeries on left foot [id number], as that Condition healed swelling came on, never went away. Also history shanae knees replacements, right AMMON, fractured right hip 2022 ORIF, then revision done 2023. Hoping to have left AMMON soon due to severe pain, using cane to walk, reluctant to use walker. Saw wound care at [facility] recently, wounds on shins healed, has velcro wrap garments shanae ankle to knee. Reports feet not affected by swelling but is swollen from ankles up. . Down 30 lbs, trying to lose another 30. Goes to water aerobics 2x/wk when can. Elevating doesn't improve the swelling. Also walks some for exercise wears compression. Prior Treatments and as above Tests Future Testing and anticipated left AMMON soon by Dr. Bishop Treatments Planned OP-PT Subjective Patient Comments Patient Comments Reports legs very tired after seeing personal health coach, working on balance and core strength. Wearing Bioflect compression, at times wearing compression socks over, bandaging at times over , doing exercises, massage Lymphedema Measurements Lower Extremity Circumference Measurements Right Affected MT Heads 22.3 cm Mid-foot 22.6 cm Medial Malleolus 27.2 cm 10 cm From Medial 40.3 cm Malleolus 20 cm From Medial 47 cm Malleolus 30 cm From Medial 48.8 cm Malleolus 40 cm From Medial 46 cm Malleolus 50 cm From Medial 57.4 cm Malleolus 60 cm From Medial 61.8 cm Malleolus 70 cm From Medial 70 cm Malleolus 80 cm From Medial 87.3 cm Malleolus Knee Joint 46 cm Left Affected MT Heads 21.8 cm Mid-foot 23 cm Medial Malleolus 24.7 cm 10 cm From Medial 41.2 cm Malleolus 20 cm From Medial 44.2 cm Malleolus 30 cm From Medial 45.8 cm Malleolus 40 cm From Medial 46.6 cm Malleolus 50 cm From Medial 53.7 cm Malleolus 60 cm From Medial 57.4 cm Malleolus 70 cm From Medial 68.8 cm Malleolus Knee Joint 46.6 cm Lymphedema Treatment Manual Lymphatic Drainage Location for shanae LE lipo-lymphedema Duration 60 Comments reviewed technique for home Airos 6 seqeuntial pneumatic pump to opp leg undergoing MLD continue patient education self MLD technique Lymphedema Wrapping Materials Bioflect pants and compression socks Patient donning indep Compression Pump Treatment Treatment Location L Le Pressure Amount ( 60 mmHg) (mmHG) Treatment Comments during MLD side not receiving MLD Physical Therapy Assessment Other Concerns Barriers to severe left hip pain and moderate OA bilateral hands Rehabilitation making donning compression garments difficult Goals Two Impairment Lymphedema Life Impact Scale 54% Short Term Goal (STG Decrease score to no greater than 40% as measure of ) improved function and quality of life 08/19/25: goal met STG Duration 07/30/25 Fdc Goal (LTG) Decrease score to no greater than 20% as measure of improved function and quality of life LTG Duration 09/29/25 One Impairment lipo-lymphedema shanae LE's Short Term Goal (STG Patient will be instructed in all aspects of lipo- ) lymphedema self-care to include skin care, elevation, self-massage, self-bandaging/compression options, and lipo-lymphedema exercises. 08/19/25: goal met STG Duration 07/30/25 Fdc Goal (LTG) Decrease patient?s lipo-lymphedema to a stable level ( no increase or decrease greater than 1 cm over the course of 1 week), patient to be independent with all aspects of self-care for lipo-lymphedema, and will obtain appropriate compression garment for lipo- lymphedema management in the home. LTG Duration 09/29/25 Assessment Summary Assessment Patient measurements variable today, mostly increased; seeing later in day and did heavy exercise routine today in anticipation AMMON soon . Patient has been seen for PT to address her lipo-lipedema for shanae LEs, buttocks, and trunk since 06/30/25 including elevation, skin care, manual lymphatic drainage, exercise, and compression. She is highly compliant to self care as instructed. She wears her compression garments daily and is highly motivated. Despite being seen for more than 30 days she continues to have challenges with managing her lipo-lipedema, including noted increase in many circumferential measurements today. Feel she would benefit highly from the use of a sequential pneumatic pump in the home, pants style to assist in self management. We have done trial in PT with Airos 6 sequential pneumatic pump alternating LE's and noted decrease in circumferential measurements after. Physical Therapy Plan Frequency and Duration Frequency of 20 Treatment Duration of 12 treatment (weeks) Plan of Care Start 06/30/25 Date Plan of Care End 09/29/25 Date Next Visit Focus/Plan Next Note Type Treatment Note Next Visit Plan Contact Dr. iBshop regarding pt completing PT for lipo -lymphedema. Request sequential pneumatic pump for use at home.
--- NOTE | 2025-09-11 10:31 | PT.OPDS ---
Current Diagnoses Lipomatosis, not elsewhere classified (09/11/25) Lymphedema, not elsewhere classified (09/11/25) Unilateral primary osteoarthritis, left hip (09/11/25) Visit Care Team Role Provider Type Kari Nagel PA-C Family Provider Non-Staff Primary Care Provider Specialty: Family Practice Address: [address], [place], [address] Email: Cameron Bishop MD Attending Provider Physician Referring Provider Specialty: Orthopedics Orthopedic Surgery Address: [facility] [place], [address] Email: [email or web address] Visit Number Visit Number 6 Discharge Summary PT OP: Lymphedema Lower Extremity Start: 06/30/25 14:33 Freq: Status: Active Protocol: Document 09/11/25 09:40 SAK (Rec: 09/11/25 10:31 SAK Laptop) Out-Patient Physical Therapy Visit Information Visit Information Visit Type Treatment Note Visit Start Time 09:45 Visit Stop Time 10:25 Visit Number 6 Number of HIGH SCHOOL ASSISTANT PRINCIPAL Visits 0 Precautions Precautions recent wounds on shins history falls arthritis Lymphedema Treatment Patient Education Other Patient instructed in set up and use of Airos 6 sequential pneumatic pump, with assessment of fit and tolerance. Patient demonstrated good understanding and tolerance. Good fit noted. Pump issued to patient. No further PT needs at this time. Patient to be discharged from PT. Physical Therapy Assessment Assessment Summary Assessment Patient instructed in set up and use of Airos 6 sequential pneumatic pump, with assessment of fit and tolerance. Patient demonstrated good understanding and tolerance. Good fit noted. Pump issued to patient. No further PT needs at this time. Patient to be discharged from PT. Physical Therapy Plan Discharge Physical Therapy Discharge Reasons Goals Met
== END 2025-09-16 15:10 | disposition home or self-care (01) ==
LOC: PHYS 09:45
PROVIDERS: Family Provider Physician Assistant Medical; PCP Physician Assistant Medical; Referring Provider Orthopaedic Surgery Adult Reconstructive Orthopaedic Surgery; Visit Provider Orthopaedic Surgery Adult Reconstructive Orthopaedic Surgery
DX: M16.12 Unilateral primary osteoarthritis, left hip (principal); I89.0 Lymphedema, not elsewhere classified; E88.2 Lipomatosis, not elsewhere classified
CPT/HCPCS: 97016; 97110; 97140; 97162; 97530; 97535

== ENCOUNTER 2025-10-20 11:51 | Day surgery (SDC) | payer MEDICARE, OTHER, SELFPAY ==
[2025-10-09 12:39] VITALS: BMI 30.5
[2025-10-20] VITALS (11 sets, daily range): BP systolic 119–152; BP diastolic 67–91; PULSE 75–128; RESP 12–22; TEMP 36.8–37.2; O2SAT 94–100; BMI 29.7
--- NOTE | 2025-10-20 | DI.RAD.S_ITS ---
PROCEDURE: XR HIP W PEL IF DONE LT 2V INDICATIONS: POST OP TECHNIQUE: AP pelvis and lateral view of the hip acquired. COMPARISON: [facility], CR, XR HIP W PEL LT 2V, 10/20/2025, 15:09. FINDINGS: Bones: Patient is status post left hip arthroplasty, with hardware components in expected positions. The hip joint appears congruent. The visualized bony structures appear intact. Soft tissues: Overlying postoperative changes are noted. No suspicious soft tissue densities. IMPRESSION: Expected post-operative appearance of a hip arthroplasty. Dictated by: Tim Moncada M.D. on 10/20/2025 at 17:23 Approved by: Tim Moncada M.D. on 10/20/2025 at 17:24
--- NOTE | 2025-10-20 06:00 | DI.RAD.S_ITS ---
PROCEDURE: XR HIP W PEL IF DONE LT 2V INDICATIONS: implant placement TECHNIQUE: One-view of the hip acquired. COMPARISON: [facility], RENAE, ORTHO-XR HIP LT 2V, 05/16/2025, 13:53. [facility], RENAE, XR HIP W PEL LT 2V, 10/20/2025, 17:04. FINDINGS and IMPRESSION: Single spot fluoroscopic intraoperative image of the left hip demonstrates expected changes related to a total hip arthroplasty. Approved by: Ernst Barney M.D. on 10/21/2025 at 10:43
[2025-10-20] MEDS: LACTATED RINGERS 1,000 ML 42 ML IV ×2 (12:55→15:24)
[2025-10-20] MEDS: ACETAMINOPHEN 325 MG TABLET 975 MG PO ×2 (13:02→20:53)
--- NOTE | 2025-10-20 13:23 | PM.PREOP ---
Pre-operative Note Interval Note History & Physical reviewed/Exam performed by Physician: Yes Changes to H&P: No
[2025-10-20] MEDS: TRANEXAMIC ACID 1,000 MG in SODIUM CHLORIDE 0.9% 100 ML 200 MG IV ×2 (14:11→16:28)
[2025-10-20] MEDS: KETOROLAC 30 MG/ML VIAL 15 MG IM (14:50)
--- NOTE | 2025-10-20 14:53 | SUR.OPER ---
Supine on padded [place] table with bilateral legs secured in padded positioning boots and suspended in positioning spars, operative leg in traction per surgeon. Head on one pillow. Bilateral arms secured on padded armboards <90 degrees abduction. Padded perineal post in place per surgeon.
[2025-10-20] MEDS: EPINEPHrine 1 MG/ML TOP (15:37)
[2025-10-20] MEDS: ONDANSETRON 4 MG/2 ML INJ IV (17:31)
--- NOTE | 2025-10-20 17:32 | P.OP_ITS ---
Operative Date/Time/Diagnoses Date of procedure: 10/20/25 Time of procedure: 14:30 Pre-op diagnosis: Left hip osteoarthritis Post-op diagnosis: same Procedure & Clinicians Procedure: Left total hip arthroplasty Same procedure(s) as scheduled: Yes Surgeon: Cameron Bishop Assisted?: Yes Low Altitude Air Defense Officer: Stacey Forbes Anesthesia Type: General and Local Operative Notes Findings: Severe arthritis and osteoporosis Specimen(s): none sent Applied: implant(s) Estimated Blood Loss (mL): 350 Blood products transfused: none Procedure in detail: Left Cemented Direct Anterior Depuy Total Hip Arthroplasty: Implants: * Tirso G7 size 54 cup? * Cemented Avenir femoral stem size 8 standard offset? * 40 mm -3.5 ceramic femoral head Procedure Summary: This 79-year-old female patient has severe lymphedema of her bilateral lower extremities. Prior to proceeding with surgery I have had her work with a local physical therapist who specializes in lymphedema massage in order to maximize her wound healing potential by optimizing her soft tissue around her hip preoperatively. She also takes Eliquis at baseline so in addition to multiple additional layers of sutures beyond my typical closure I used a incisional wound VAC for her dressing. Intraoperatively I found that she had very poor bone quality in her femur and transitioned to cemented fixation. I ended up using the largest sized cemented stem in this system which is a size 8. With a-3.5 head the final construct had equal leg lengths to the contralateral side with increased offset. She had excellent stability as I was unable to manually dislocate her hip Procedure in Detail: This patient was seen preoperatively and evaluated for hip pain which was refractory to numerous nonoperative treatment modalities. Their hip pain correlated with radiographic changes demonstrating significant degeneration in the hip joint. The risks and benefits of continued nonoperative management versus operative management were discussed at length and all of the patient?s questions were answered. Additional educational materials providing further details beyond our discussion in clinic were provided via a publicly available patient education video which included the incidence of medical complications associated with total hip arthroplasty, reasons for revision following total hip arthroplasty, and patient satisfaction rates following total hip arthroplasty. With this understanding of the risks inherent to the procedure, the patient elected to move forward with operative management. Following preoperative optimization, the patient was scheduled for surgery. The patient was met in the preoperative holding area the day of the procedure and all questions were answered. The patient?s nares were swabbed in order to decolonize them from MRSA. Informed consent was signed and the left limb was marked with indelible ink.? The patient was brought back to the operating room where anesthesia was induced. The patient was transferred to the [place] table and all bony prominences were padded. The operative site was prepped and draped in the usual sterile fashion. Prior to incision, tranexamic acid and cefazolin were administered. Operative templating images were displayed demonstrating the anticipated implant sizes and correct operative extremity. A timeout procedure was performed verifying the patient?s identity, medical comorbidities, allergies, relevant medications, anesthesia type and the surgical plan. All present were in agreement. The assistance of a physician bar assistant was required for positioning, room setup, soft tissue retraction and wound closure. Without this assistance, the procedure would have been significantly more challenging and time consuming.?? A direct anterior approach to the hip was utilized. This was performed with a longitudinal incision through a Heuter interval. The incision was planned 2 cm distal and 2 cm lateral to the ASIS extending towards the lateral patella, in line with the muscle body of the TFL. Following incision, the subcutaneous tissue was dissected while taking care to avoid injury to the lateral femoral cutaneous nerve. The fascia overlying the TFL was identified by dissecting off the overlying fat and identifying perforating vessels to the TFL. The TFL fascia was incised and dissected away from the medial border of the TFL. A retractor was placed over the superior femoral neck between the abductors and the hip capsule and used to reflect the TFL laterally. A [place] self-retainer was then placed in the distal aspect of the wound between the TFL and the rectus femoris. This was tensioned to open up the direct anterior interval and the lateral circumflex vessels were identified and coagulated using electrocautery. The floor of the TFL fascia was incised, exposing the pericapsular fat overlying the hip capsule. A second cobra retractor was placed on the inferior femoral neck. A retractor was placed on the anterior wall of the acetabulum and used to tension the reflected head of rectus femoris, which was then released in order to limit soft tissue tension. A capsulotomy was made in the midline of the anterior hip capsule in line with the femoral neck ending at the vastus tubercle. The anterior retractor was removed as soon as the capsulotomy was completed in order to limit the amount of time that a soft tissue retractor remained on the anterior wall and limit tension on the femoral nerve. Tag stitches were placed in the superior and inferior leaflets of the hip capsule. An Cecilio soft tissue retractor was introduced over the tag stitches and tensioned in the interval between the rectus femoris and the TFL in order to retract and protect those muscles. The cobra retractors were replaced intracapsularly, with one over the superior neck in the pocket created by the base of the greater trochanter and the other on the femoral head. The capsulotomy was extended laterally to the base of the greater trochanter and medially to the lesser trochanter. This required externally rotating the hip. Once the lesser trochanter had been identified, a neck cut was planned according to measurements from preoperative templating. A ruler was cut at the length measured between the superior aspect of the lesser trochanter and the collar of the prosthesis. This line was extended towards the inferior aspect of the lateral cobra retractor to plan a cut which would leave minimal residual femoral neck laterally. The neck was cut at 60 degrees of external rotation along that line. A second cut was performed to remove a large napkin ring and facilitate head extraction. The napkin ring cu t and femoral head were removed.?? A broad anterior wall retractor was placed between the labrum and the anterior capsule so that the anterior capsule would prevent capturing and pinching the femoral nerve anteriorly. An additional retractor was placed on the posterior wall. External rotation and traction were applied through the [place] table so that the cut surface of the femoral neck would not restrict access to the acetabulum. The labrum was excised sharply and the pulvinar was excised with electrocautery to limit bleeding from branches of the obturator artery. Acetabular reamers were selected based on preoperative templating and measurements of the excised femoral head. These were introduced into the acetabulum. Fluoroscopy was utilized to replicate a standing AP pelvis radiograph by centering over the pelvis, rotating until there was appropriate symmetry between the obturator foramen, and introducing caudal tilt to match the position of the pubic symphysis relative to the sacrococcygeal junction according to the patient?s anatomy. Once satisfied with the reaming depth corresponding to the preoperative template and the pinch fit between the columns, an appropriate sized acetabular cup was selected which would provide 1 mm of press-fit. This cup was introduced and manipulated until appropriate abduction and anteversion angles were obtained with careful attention to appropriate abduction and anteversion angles as evaluated by the position of the cup relative to the anterior and posterior boyd of the acetabulum and the AP fluoroscopy which recreated the patient?s standing radiograph. The cup was impacted into place. Peripheral osteophytes were removed. The acetabular liner was then placed with care to ensure locking of the locking mechanism. Attention was then turned to the femur. All retractors were removed, traction was released, a retractor was placed in the interval between the hip capsule and the gluteus minimus. The lateral capsule was released using electrocautery. Traction was released and a [place] hook was placed posteriorly around the proximal femur at the level of the vastus ridge. The table height was lowered in order to restrict the tension on the anterior structures during hip hyperextension to limit the risk of femoral nerve palsy. With traction off and the hip at 90 degrees of external rotation, the hip was hyperextended and adducted while manually elevating the femur away from the acetabulum with the [place] hook to avoid hooking the greater trochanter on the pelvis. An asymmetric retractor was placed over the calcar and a broad double-pronged retractor was placed over the greater trochanter. The tag stitch capturing the lateral leaflet of the capsule was moved to the medial side, leaving the conjoined and piriformis tendons isolated in the face of the greater trochanter. The hip was externally rotated and elevated. A release of the conjoined tendon was necessary in order to obtain adequate exposure for broaching. The canal was opened with an opening broach and a rasp was used to remove cancellous bone. A rongeur was used to remove the residual lateral bone at the base of the greater trochanter to avoid placing the stem in varus. The femur was then broached to the appropriate sized stem yielding good rotational fit and fill of the canal as well as appropriate version of the stem trial. Neck and head trials were placed, all retractors were removed and the hip was returned to neutral abduction and extension. I then reduced the hip and manually trialed it before changing surgical gloves. Initial trialing was performed with a size 8 broach, a standard offset neck and a +0 head. I initially manually externally rotated the hip and found that I could not dislocate it and it was very hard to even get the hip reduced. I then locked the hip in 45 degrees of external rotation and dropped it to the floor with traction off which demonstrated good canal fill. An OrthoGrid overlay image was obtained by matching the abduction angle of the nonoperative hip to the operative hip and overlaying the offset and leg length of the operative side relative to the nonoperative side while matching pelvic morphology. This overlay image demonstrated that the operative site was dramatically long and also had increased offset. I therefore returned to the broaching position and sink the broach approximately 6 mm further down the canal. I repeated trialing at that point in time now using a-3.5 head and found that the leg length had been corrected and that there was still increased offset but it could not decrease the offset any further as I already had a standard offset neck and the smallest head size available. I therefore planned to insert those components. I then returned to the broaching position and prepared for cementation. Prior to cementation I irrigated the canal, placed a cement restrictor, irrigated the canal again, placed epinephrine-soaked vaginal packing with a whistle-tip catheter, and removed the whistle-tip catheter after insertion of cement. The definitive stem was placed. Cement was allowed to dry. The trunnion was cleaned and dried. I placed a trial head onto the trunnion and repeated the trialing process. All parameters were the same as they had been during the 2nd set of trials with the broach in place. I therefore inserted a Ceramic head onto the trunnion and impacted it into place on the [place] taper.?? All retractors were removed and the hip was reduced. A dilute mixture of betadine and peroxide was used to bathe the soft tissues during final fluoroscopic assessment. Appropriate component positioning was confirmed on an OrthoGrid overlay image comparing the operative side to the nonoperative side. Appropriate stem fill was evaluated on AP and lateral hip radiographs. No p reviously unrecognized fractures were identified on these radiographs. There was no hip instability with maximum (105?) external rotation as well as a 45 degree drop test. The hip was copiously irrigated with pulse lavage. The capsule was closed with absorbable interrupted suture. The TFL fascia was closed with barbed suture while carefully protecting the lateral femoral cutaneous nerve from entrapment. A mixture of Ropivacaine, Epinephrine and Toradol was infiltrated throughout the soft tissues. The skin was closed with 2-0 and 3-0 sutures. Surgical glue was applied and a soft dressing was placed.??The sponge, instrument and needle counts were reported as being correct at the end of the case.??No obvious complications occurred. The patient was transferred from the [place] table back to a stretcher. The patient emerged from anesthesia without difficulty and was taken to the PACU in a stable condition.? Plan for aftercare: * No hip precautions * Weightbearing as tolerated * Eliquis 5 mg twice per day for DVT prophylaxis to begin on postoperative day 1 * William incisional wound VAC in place. Should remain in place until 2 week follow up. The battery will after week at which point the cord can be removed * Anticipate discharge home tomorrow * Multimodal pain regimen with no IV opioids ordered * Follow up at [facility] in 2 weeks Complications: none Post-operative Condition: stable Disposition: observation
--- NOTE | 2025-10-20 17:59 | SUR.PHASEI ---
Called and spoke with Dr Mariusz anne. Discussed patient HR AFIB 100-110 with occasional times up to 120. Last BP 130/73. Pt takes Metoprolol BID home, am dose today at 0700. Plan to start evening dose now and then ok to transfer to floor.
[2025-10-20] MEDS: METOPROLOL IR 25 MG TABLET PO (18:06)
[2025-10-20] MEDS: LACTATED RINGERS 1,000 ML 100 ML IV (20:52)
[2025-10-20] MEDS: ATORVASTATIN 20 MG TABLET 40 MG PO (20:53)
[2025-10-20] MEDS: CEFADROXIL 500 MG CAPSULE PO (20:53)
[2025-10-20] MEDS: DOCUSATE 100 MG CAPSULE PO (20:53)
[2025-10-20] MEDS: PREGABALIN 25 MG CAPSULE 50 MG PO (20:54)
[2025-10-20] MEDS: PREGABALIN 75 MG CAPSULE 150 MG PO (20:54)
[2025-10-21 05:04] LABS: Add Manual Diff / Slide Review NO; Hematocrit 31.7 % (36-46); Hemoglobin 11.0 g/dL (12.0-16.0); Lymphocytes Absolute Auto 1500 /uL (1100-4500); Mean Corpuscular HGB Conc 34.7 % (30-36); Mean Corpuscular Hemoglobin 33.7 PG (26-34); Mean Corpuscular Volume 97.1 fL (80-100); Platelet Count 114 X10^3/uL (150-400)
[2025-10-21 05:20] LABS: Blood Urea Nitrogen 26 mg/dL (7-17); Calcium 8.7 mg/dL (8.4-10.2); Carbon Dioxide 24 mmol/L (22-32); Chloride 107 mmol/L (98-107); Estimated Glomerular Filt Rate > 60 mL/min (>60); Glucose 98 mg/dL (70-99); HEMOLYSIS < 15 (0-50); Potassium 4.5 mmol/L (3.4-5.1); Sodium 137 mmol/L (137-145)
[2025-10-21 05:39] VITALS: BP 98/50; PULSE 94; RESP 16; TEMP 36.4; O2SAT 93
[2025-10-21] MEDS: ACETAMINOPHEN 325 MG TABLET 975 MG PO ×2 (05:43→15:36)
[2025-10-21] MEDS: LACTATED RINGERS 1,000 ML 100 ML IV (05:44)
--- NOTE | 2025-10-21 06:18 | PC.NURSE ---
Pt POD 1 from L anterior hip arthroplasty, tolerating oral intake w/o n/v. Pain well controlled on current regimen. ELIZABETH dressing remains clean, dry intact; ice applied per protocol.? Pt ambulated to bathroom multiple times during shift with one-person assist, using fww; tolerating activity well.? This RN notes concern with transfers due to existing chronic R shoulder pain w/limited range of motion; pt unable to effectively use grab bars or bear weight through upper R extremity when transitioning from sitting to standing. PT/OT will consult today.? Pt resting comfortably at end of shift.?
[2025-10-21 06:45] VITALS: BP 110/54; PULSE 100; RESP 16; O2SAT 95
[2025-10-21 08:14] VITALS: BP 91/48; PULSE 94; RESP 16; TEMP 36.7; O2SAT 100
[2025-10-21] MEDS: DOCUSATE 100 MG CAPSULE PO (08:52)
[2025-10-21] MEDS: CEFADROXIL 500 MG CAPSULE PO (08:52)
[2025-10-21] MEDS: APIXABAN 5 MG TABLET PO (08:52)
--- NOTE | 2025-10-21 08:52 | P.DS_ITS ---
History of Present Illness History of Present Illness Chief complaint: Left AMMON anterior OPB Narrative: Attending: Dr. Cameron Bishop Orthopedic Procedures: ?Left Total Hip Arthroplasty 79year old female with a past medical history of obstructive sleep apnea, lymphedema, hypertension, TIA (2020), atrial fibrillation, gastric bypass and pulmonary embolism presented to [facility] on 10/20/2025 for planned left total hip arthroplasty by Dr. Bishop. This elective procedure was indicated by chronic left hip arthritis that failed to improve sufficiently with conservative treatment. On the date of surgery there were no changes to the patient?s medical history, medications or allergies. Consent had been obtained and the patient agreed to proceed with planned surgery. Pre-operative labs were reviewed prior to surgery. Discharge Providers Provider Discharge Date: 10/21/25 Primary care physician: Kari Nagel PA-C Consults: 10/20/25 17:58 Consult to Occupational Therapy Evaluate & Treat Comment: no hip precautions Physician Instructions: eval and treat Consult to Physical Therapy Evaluate & Treat Comment: no hip precautions Physician Instructions: eval and treat Discharge provider: ANUP Rojo Dr Summary Hospital Course Hospital Course: On 10/20/2025 the patient was brought to the operating room for planned left total hip arthroplasty by Dr Bishop. There were no known intraoperative complications. The patient was transferred to the postoperative recovery area and monitored appropriately. Later the patient was transferred to the acute care unit [facility] for monitoring overnight and physical therapy. There were no acute events overnight. On postoperative day one, the patient's vital signs included a blood pressure of 110/54 and tachycardia overnight improved. She denied any sense of palpitations, dizziness, ligtheadedness, shortness of breath or chest pain. She was making urine spontaneously. The patient was awaiting physical therapy evaluation during orthopedic rounds. Pain was well-controlled on oral analgesics including acetaminophen without use of oxycodone or tramadol. The patient denied any numbness or tingling in the operative leg. The patient agreed with preoperative plan to discharge home on postoperative day one. They have no acute concerns or questions. Hemoglobin 11.0, platelets 114 today. ROS today: no chest pain, dyspnea, fever, chills, nausea or emesis Exam Vital Signs (past 8 hours): - 10/21/25 05:39 10/21/25 06:45 10/21/25 08:14 Temperature 97.6 F 98.0 F Pulse Rate 94 H 100 H 94 H Respiratory Rate 16 16 16 Blood Pressure 98/50 L 110/54 L 91/48 L Pulse Oximetry 93 95 100 Oxygen Flow Rate 0 0 Oxygen Delivery Method Room Air Oxygen Flow Rate 0 Narrative Exam Narrative: Well developed, well-nourished 79 year old female, resting comfortably Normal respiratory effort on room air without accessory muscle use Dressing is clean, dry and intact to the left hip without drainage. William dressing in place without strike through. Flexion and extension of the first hallux, ankle and knee are intact SCDs in place Palpable dorsalis pedis pulse. Sensation grossly intact to light touch about L2- S1 distributions Objective Labs 10/21/25 04:34 10/21/25 04:34 Labs: Laboratory Results - last 24 hr 10/21/25 04:34 WBC 7.3 RBC 3.27 L Hgb 11.0 L Hct 31.7 L MCV 97.1 MCH 33.7 MCHC 34.7 RDW 13.6 Plt Count 114 L Neut % (Auto) 71.8 Lymph % (Auto) 20.9 L Ransom % (Auto) 7.1 Eos % (Auto) 0.0 L Baso % (Auto) 0.2 Neut # (Auto) 5300 Lymph # (Auto) 1500 Ransom # (Auto) 500 Eos # (Auto) 0 Baso # (Auto) 0 Sodium 137 Potassium 4.5 Chloride 107 Carbon Dioxide 24 BUN 26 H Creatinine 0.93 Estimated GFR > 60 BUN/Creatinine Ratio 28.0 H Glucose 98 Calcium 8.7 PFSH Medical History (Updated 10/09/25 @ 13:22 by Xochitl Ramos RN) Femur fracture, right ARTURO on CPAP Venous insufficiency Lymphedema TIA (transient ischemic attack) (04/2021) HTN (hypertension) HLD (hyperlipidemia) Afib Primary osteoarthritis of left hip Surgical History (Updated 10/09/25 @ 13:22 by Xochitl Ramos RN) S/P foot surgery, left History of open reduction and internal fixation (ORIF) procedure History of right hip replacement Hx of hysterectomy (1999) History of bilateral knee replacement S/P carpal tunnel release (2014) Social History household members: none Smoking Status: Former smoker alcohol intake: current Discharge Assessment & Plan Assessment and Plan Plan of Treatment: 79 year old female with a past medical history of obstructive sleep apnea, lymphedema, hypertension, TIA (2020), atrial fibrillation, gastric bypass and pulmonary embolism is post operative day 1 from a left total hip arthroplasty by Dr. Bishop at [facility] on 10/20/2025. The patient is recovering well with appropriate pain control on oral analgesics and no dizzness or lightheadedness. The patient was also seen and evaluated by Dr Bishop today given hypotension. The patient is comfortable with planned discharge home today on post operative day one. She denied any chest pain, shortness of breath or dizziness. Plan: - Weight bearing as tolerated to operative extremity with front wheeled walker - Hip precautions: none - Antibiotics: 2 postoperative doses of Ancef, Cefadroxil 500 mg twice daily for 10 days post operatively - DVT prophylaxis: 81 mg of aspirin by mouth twice daily - Pain control: multimodal analgesia with acetaminophen, tramadol and oxycodone. Minimize use of opioid medication. Ice to surgical site. - Bowel regimen: docusate sodium twice daily for constipation - Physical therapy evaluation today prior to discharge - Follow up: 2 week follow up at [facility] - Discharge medications: none. Post operative medications were prescribed prior to surgery - Disposition: home today All patient questions were answered, and they verbalized agreement with the above plan. Call [facility] or design/animation instructor provider with any questions or concerns. Discharge Plan Discharge Plan Provider Discharge Comment: SURGICAL PROCEDURE: Left Total Hip Arthroplasty SURGEON: Dr. Bishop at [facility] DATE: 10/20/2025 ACTIVITY INSTRUCTIONS - You are weight bearing as tolerated to the left lower extremity with a front wheeled walker at all times. We encourage active movement of the toes and ankle every hour while awake to prevent stiffness. - You have no hip precautions - Limit your steps to no more than 1000 steps per day for the first week after surgery to limit swelling. - Do not drive while taking narcotic medications and recovering from your surgery. DRESSING CARE - You have an William dressing on top of your incision. This is a waterproof dressing and so you may shower with the dressing so long as the dressing remains clean and dry to the surgical site. Leave the dressing in place until your follow up in the orthopedic clinic. If the dressing becomes saturated or is disrupted call our office for further guidance. - Your William dressing is a wound vac dressing which has a battery attached. This battery will in about 1 week. When this happens, you may cut the cord to the battery pack but should leave the dressing in place. POST-OPERATIVE INSTRUCTIONS - If you notice fever, chills, night sweats, redness, excessive drainage or bleeding, a sharp increase in pain that persists after taking pain medication, pain in your calf muscles, chest pain or trouble breathing please unwrap the dressing and investigate. Then call the office with findings for further guidance. If it is after regular clinic hours, please seek care in the emergency department. - In the rare case of any severe chest pain and trouble breathing, seek immediate care, do not delay for a call to the clinic. - Use ice to the affected extremity for 15-30 minutes increments as much as possible. Use your ice machine as discussed in your pre-operative visit. - Keep extremity elevated to the level of the heart to reduce swelling. You can use ice on top of the dressing to reduce pain and swelling of the extremity. - You should consume a low sodium diet after surgery to limit swelling. You can gradually resume your normal diet if you have no nausea or vomiting - Physical therapy should begin about 7-10 days after surgery. Your first evaluation should already be scheduled. Call our office if you cannot schedule your therapy in the expected time frame. - Your follow up is already scheduled for 2 weeks after your surgery at the Orthopedic clinic. - You should have no dental procedures for 6 months following your total joint replacement. - Please refer to Dr. Bishop?s educational videos on [email or web address] for a reference on your post operative care. [email or web address] - Call [facility] at [phone] with any questions or concerns. MEDICATIONS - Please refer to the ?Orthopedic Medication Instructions? sheet provided at your pre-operative visit. Written instructions are provided below as a reminder. - Take two pills of 500 mg Tylenol (acetaminophen) every 8 hours regardless of pain in a scheduled manner. Do not exceed 3000 mg of Tylenol (from ALL sources, including over the counter combination products) in a 24-hour period due to risk of liver injury. - Take one pill of 5 mg oxycodone by mouth every 4-6 hours as needed for break through pain after taking your regular Tylenol and anti-inflammatory. Oxycodone is an opioids, which means it is similar to morphine, heroin or fentanyl. Our goal is for you to take as little of this as possible because the side effects from it can be very severe. If you are able to get through your recovery process taking 10 pills or less please share your story with other patients by logging onto [email or web address] and sharing what strategies you used to avoid these dangerous medications. You can also read other patients? stories on that website to get strategies that go above and beyond what we have discussed to help you manage this pain while avoiding opioids. - Take 200 mg of Colace by mouth every 12 hours for constipation. Narcotic medications such as oxycodone and tramadol as well as anesthesia may increase your risk of constipation after surgery. - Take 4 mg of Zofran by mouth every 6 hours as needed for uncontrolled nausea or vomiting. If you have persistent nausea and vomiting call our office or seek care in the emergency department. - Please resume your normal home 5 mg Eliquis two times daily 12 hours apart. - Take oral Journavax 50 mg every 12 hours for pain control. - Take one pill of 500 mg of Cefadroxil twice daily for 10 days after your surgery. This is an antibiotic to reduce risk of infection. Take the entire course of this medication, do not stop it early - If you stopped taking a ?biologic? medication that you normally take for an issue such as rheumatoid arthritis or psoriasis prior to surgery, do not restart it until we have seen you back in clinic and confirmed that your wound is healed. - Resume all of your normal home medications tomorrow morning unless specified otherwise by your surgeon. Discharge orders & Medications Prescriptions: New cefadroxil 500 mg Capsule 500 mg PO BID 10 Days Qty: 20 0RF Continued rosuvastatin 20 mg tablet 20 mg PO ONCE PM metoprolol tartrate 25 mg tablet 25 mg PO BID Eliquis 5 mg tablet 5 mg PO BID pregabalin 200 mg capsule 200 mg PO BID amitriptyline 10 mg PO PRN PRN (Reason: Insomnia) Zepbound 12.5 mg/0.5 mL pen injector 12.5 mg SUBCUT QWEEK docusate sodium [Colace] 100 mg capsule 100 mg PO BID Qty: 14 0RF Rx Instructions: Take 1 tablet of colace every 12 hours as needed for constipation while taking the narcotic medication mupirocin 2 % ointment 1 applic topical BID Qty: 22 0RF Rx Instructions: Apply to your nares every 12 hours for 5 days prior to surgery ondansetron 4 mg tablet,disintegrating 4 mg PO Q8H PRN (Reason: nausea and vomiting) Qty: 12 0RF Rx Instructions: Place 1 tablet of 4 mg ondansetron under your tongue as needed for nausea or vomiting acetaminophen 500 mg capsule 1,000 mg PO QID PRN (Reason: pain) 14 Days Qty: 90 0RF Journavx 50 mg tablet 50 mg PO BID Qty: 30 0RF Discontinued celecoxib 200 mg capsule 200 mg PO DAILY chlorhexidine gluconate [Hibiclens] 4 % liquid 1 applic topical DAILY Qty: 473 0RF Rx Instructions: Apply from the shoulders down when showering for 5 days leading up to surgery Follow up/Referrals: Kari Nagel PA-C [Primary Care Provider, Family Practice] Visit Report/Discharge Packet Print Language: Hebrew Discharge Data Primary Care Provider: Kari Nagel Attending Provider: Cameron Bishop VTE Deep Vein Thrombosis/Pulmonary Embolism Present on Admission: No IH PROFEE Charge Codes Discharge inpatient/observation: 22814
[2025-10-21] MEDS: PREGABALIN 75 MG CAPSULE 150 MG PO (08:53)
[2025-10-21] MEDS: PREGABALIN 25 MG CAPSULE 50 MG PO (08:53)
--- NOTE | 2025-10-21 11:28 | PT.IIE ---
Current Diagnoses Unilateral primary osteoarthritis, left hip (10/20/25) Surgery Performed Operation Date: 10/20/25 13:45 Actual Procedures p Total Hip Arthroplasty/Anterior Approach(Left) - Cameron Bishop MD Surgical History (Last Updated 10/09/25 @ 13:22 by Xcohitl Ramos, RN) History of bilateral knee replacement History of open reduction and internal fixation (ORIF) procedure History of right hip replacement Hx of hysterectomy (1999) S/P carpal tunnel release (2014) S/P foot surgery, left Medical History (Last Updated 10/09/25 @ 13:22 by Xochitl Ramos, RN) Afib Femur fracture, right HLD (hyperlipidemia) HTN (hypertension) Lymphedema ARTURO on CPAP Primary osteoarthritis of left hip TIA (transient ischemic attack) (04/2021) Venous insufficiency Physical Therapy Inpatient Evaluation/Re-Eval M1 PT IP Prior Functional Status Start: 10/21/25 12:38 Freq: NEEDED Status: Active Protocol: Document 10/21/25 11:28 DLM (Rec: 10/21/25 13:00 DLM Desktop) Medical Review Prior Functional Status Medical History Yes Reviewed Diet/Fluid Regular Consistency Communication WFL Mobility and Gait Independent with cane Activities of Daily Independent Living and IADL's Prior Functional tall bed and has step stool to get onto it Level (Other details pt has hx of lymphedema with garments to manage her ) swelling Social History Household Members none Living Arrangements House Number of Floors ( One Floor Floors) Number of Stairs To 3 sets of 2 steps with bilateral rails on each Enter/Railing? Home Environment Standard Height Toilet,Walk in Shower Home Equipment Front Wheel Walker,Straight Cane,Raised Toilet Seat w/ Armrests,Raised Toilet Seat Without Armrests,Grab Bars Near Toilet Employment Status Retired Additional Social Ice machine History Comment M2 PT-IP Current Condition Start: 10/21/25 12:38 Freq: NEEDED Status: Active Protocol: Document 10/21/25 11:28 DLM (Rec: 10/21/25 13:00 DLM Desktop) Physical Therapy Current Condition Current Condition Evaluation Date 10/21/25 Treatment Diagnosis left AMMON, anterior approach, impaired gait Onset Date 10/20/25 M3 PT-IP Subjective Start: 10/21/25 12:38 Freq: NEEDED Status: Active Protocol: Document 10/21/25 11:28 DLM (Rec: 10/21/25 13:00 DLM Desktop) Subjective Physical Therapy Visit Type Type Initial Evaluation Visit Start Time 10:40 Visit Stop Time 11:28 Notes 48 min Number of ROSS FURNACE OPERATOR Visits 0 Physical Therapy Visit Comments Patient Comments No light-headedness this visit. She does not have out- pt PT scheduled yet because they can not get her in until Nov. Patient Goals Discharge home with family help Therapy Pain Assessment Pain When Pain Assessed During Mobility Pain Present Pain Present Pain Reported Location left hip. Intensity 4 Scale Used Numeric (0 - 10) Description Aching Pain Behaviors Guarding Pain Management Re-positioning,Timing of Activity with Medications Techniques M4 PT-IP Mobility and Gait Start: 10/21/25 12:38 Freq: NEEDED Status: Active Protocol: Document 10/21/25 11:28 DLM (Rec: 10/21/25 13:00 DLM Desktop) PT-Bed Mobility Assessment Scooting Scooting to Edge of Independent Bed PT-Transfer Assessment Sit to and From Stand Sit to and from Standby Assistance Stand Equipment Transfer Assistive Gait Belt,Front Wheeled Walker Device Transfers Transfer Destination Chair Transfer Technique Stand Step Pivot Transfer Ability Level of Assist Standby Assistance,Use of Upper Extremities Comments Mobility Comments Pt is up in recliner today. BP sitting up 80/43 and HR 85. Her nurse is aware. Therapy was progressed slowly this visit due to low BP. No light-headedness nor dizziness reported. Pt left sitting up in recliner this visit. Gait Assessment Gait Gait Assistance Standby Assistance Required: Distance (Feet) 35 Able to Maintain Yes Weight Bearing Status During Gait Assistive Devices Assistive Device Gait Belt,Front Wheeled Walker Gait Deviations General Gait Pattern Antalgic,Decreased Stride Length Factors Limiting Gait Function Factors Limiting Decreased Activity Tolerance,Decreased Sensation, Gait Function Limited Range of Motion,Pain Comments Gait Comments She reports chronic numbness in left LE seems a little worse today and makes it hard to feel where her left LE is when walking. She ambulates slowly and with extra caution to manage her left LE numbness. No losses of balance with use of FWW for gait. Stair Climbing Assessment Comments Stair Climbing held stair training this visit due to low BP. Discussed Comments this with her nurse who plans to discuss blood pressure issues with surgeon PT-Balance Assessment Sitting Balance and Reactions Static Sitting Normal Balance Ability Dynamic Sitting Good Balance Ability Standing Balance and Reactions Static Standing Good Balance Ability Dynamic Standing Fair Balance Ability Device Used FWW M5 PT-IP Objective Assessments Start: 10/21/25 12:38 Freq: NEEDED Status: Active Protocol: Document 10/21/25 11:28 DLM (Rec: 10/21/25 13:00 DLM Desktop) Orientation Orientation/Cognition Level of Alertness Alert Orientation Name,Age,Birthday,Month,Date,Year,Day of Week,Place, Situation Language Function No Deficits Noted Ability Safety Awareness Understands Safety Issues Memory Description No Deficits Noted Gross Range of Motion Upper Extremity ROM Assessment Within Functional Limits Lower Extremity ROM Assessment Left Impaired Impairments limited by pain in hip s/p AMMON with anterior approach Strength Upper Extremity Strength Assessment Within Functional Limits Lower Extremity Strength Assessment Left Impaired Hip pain anterior hip, pt using UE's to help lift LE, hip flexion 2+/5 Knee knee ext 4/5 with quad soreness Coordination Assessment Gross Coordination Gross Coordination WNL Sensation Assessment Sensation Gross Sensation Left LE Impaired Proprioception ( Impaired Position) Sensation Numbness Description Comments Sensation Comments chronic numbness in left LE, pt reports it is difficult to feel where her left LE is when ambulating, pt reports numbness in left thigh area is a little worse than baseline since surgery Muscle Tone Muscle Tone WNL Yes Other Assessments Other Other Assessments pt has a hx of lymphedema M6 PT-IP Treatment Start: 10/21/25 12:38 Freq: NEEDED Status: Active Protocol: Document 10/21/25 11:28 DLM (Rec: 10/21/25 13:00 DLM Desktop) Physical Therapy Treatment Exercises Exercises Ankle Pumps,Gluteal Sets,Quad Sets,Heel Slides Education Education Provided Weight Bearing Status,Post-Op Packet,Safety Other Treatments Other Treatment answered her questions about activity at home after Performed discharge M7 PT-IP Assessment and Plan Start: 10/21/25 12:38 Freq: NEEDED Status: Active Protocol: Document 10/21/25 11:28 DLM (Rec: 10/21/25 13:00 DLM Desktop) PT Summary Assessment and Plan Potential Rehabilitation Good Potential Status of Condition Evolving at Evaluation Summary Impairments Pain,ROM,Strength,Balance,Bed Mobility,Transfers,Gait, Activity Tolerance Assessment Summary Padma is alert and sitting up in recliner today. She underwent elective left total hip arthroplasty 12/29/[address] Bishop. Her blood pressure is running low today with nursing report of 91/48 in supine and this visit in sitting BP 80/43. Pt is asymptomatic at this time. Her activity was progressed slowly due to her low BP. She demonstrates safe use of the FWW for gait. Stair training not completed this visit due to low BP. Discharge plan is home with family and out-pt Physical Therapy when she is more medically stable. She is not ready for discharge at this time. Will continue to coordinate care with nursing to progress to stair training as her BP is more stable. Goals Bed Mobility Goal Independent Transfer Goal Independent,Front Wheeled Walker Gait Goal Independent,Front Wheel Walker Gait Distance 150 feet Other Goals Up/down 2 steps with bilateral rails and SBA Days to Meet Goals 2 Frequency of Treatment Frequency Of Twice a Day Treatment Treatment Plan Physical Therapy Bed Mobility Training,Transfer Training,Gait Training, Treatment Plan Therapeutic Exercise,Balance Retraining,Post Op Education,Discharge Planning,Hot or Cold Pack Precautions Other Precautions No hip precautions ordered by surgeon Low Blood pressure post-op Weight Bearing Status Weight Bearing Weight Bear as Tolerated Status Allowed Weight left LE with FWW Bearing Amount ( enter % or #) (%) Recommendations To Nursing Amount of Assist 1 Person Assist Needed Discharge Recommendations PT Discharge Home with Assistance,Outpatient PT Recommendations Other Discharge She has family who will be staying with her to help at Recommendations discharge Transportation Needs Private Vehicle at Discharge - PT assist 1
--- NOTE | 2025-10-21 11:53 | PC.NURSE ---
Dayshift note: Patient up OOB to chair with PT, BP 91/48 this am (Metropolol held) asymtomatic. HR 89. Dr. Cao made aware (button breaker operator). Called Dr. Bishop (OG surgeon). Awaiting for call back. IVF continued. 1150 85/39 MAP 62. Awaiting call back from Dr. Bishop.
--- NOTE | 2025-10-21 13:00 | OT.IP.EVAL ---
Current Diagnoses Unilateral primary osteoarthritis, left hip (10/20/25) Surgery Performed Operation Date: 10/20/25 13:45 Actual Procedures p Total Hip Arthroplasty/Anterior Approach(Left) - Cameron Bishop MD Past Medical History (Last Updated 10/09/25 @ 13:22 by Xochitl Ramos, RN) Afib Femur fracture, right HLD (hyperlipidemia) HTN (hypertension) Lymphedema ARTURO on CPAP Primary osteoarthritis of left hip TIA (transient ischemic attack) (04/2021) Venous insufficiency Surgical History (Last Updated 10/09/25 @ 13:22 by Xochitl Ramos RN) History of bilateral knee replacement History of open reduction and internal fixation (ORIF) procedure History of right hip replacement Hx of hysterectomy (1999) S/P carpal tunnel release (2014) S/P foot surgery, left Occupational Therapy Inpatient Evaluation/Re-Eval M1 OT IP Prior Functional Status Start: 10/21/25 12:32 Freq: Status: Active Protocol: Document 10/21/25 09:10 [facility] (Rec: 10/21/25 13:00 [facility] Desktop) Medical Review Prior Functional Status Medical History Yes Reviewed Communication Pt is able to make needs known. Mobility and Gait Pt reports amb with SC prior to sx. Pt has access to a FWW and 4WW. She reports using the 4WW for gardening tasks. Activities of Daily Pt was I/MOD I with BADL, IADL, driving, community Living and IADL's engagements, and medication mgmt. Pt has a investment fund manager who assists in more intense IADLS. She volunteers at the senior center. Social History Household Members none Living Arrangements House Number of Floors ( One Floor Floors) Number of Stairs To 2 steps to enter from outside with B rails, 2 steps to Enter/Railing? enter from garage with B rails, and 2 steps to enter craft room with B rails Home Environment Standard Height Toilet,Walk in Shower Home Equipment Front Wheel Walker,Four Wheel Walker,Straight Cane, Raised Toilet Seat w/Armrests,Raised Toilet Seat Without Armrests,Hand Held Shower,Long Handled Shoe Horn,Grab Bars Near Toilet,Grab Bars In Shower Additional Social Pt has a walk-in tub. Pt reports she sleeps in a non History Comment adjustable bed that is high and uses a step stool to access bed. M2 OT-IP Current Condition Start: 10/21/25 12:32 Freq: Status: Active Protocol: Document 10/21/25 09:10 [facility] (Rec: 10/21/25 13:00 [facility]) Occupational Therapy Current Condition Current Condition Evaluation Date 10/21/25 Treatment Diagnosis s/p L AMMON, decreased self care Diagnosis Onset Date 10/20/25 Post Operative Precautions Other Precautions Anteriror approach, NO PRECAUTIONS per MD Weight Bearing Status Weight Bearing Weight Bear as Tolerated Status M3 OT- IP Subjective and Pain Start: 10/21/25 12:32 Freq: Status: Active Protocol: Document 10/21/25 09:10 [facility] (Rec: 10/21/25 13:00 [facility]) OT- Subjective Occupational Therapy Visit Type Type Initial Evaluation Visit Start Time 09:10 Visit Stop Time 09:43 Occupational Therapy Visit Comments Patient Comments Pt long sitting in bed on entrance of OT. Pt agreeable to participating in OT eval and getting up to chair. Patient/Caregiver To return home Goals OT Pain Assessment Pain Present Pain Present Denied Pain M4 OT- IP ADL's Start: 10/21/25 12:32 Freq: Status: Active Protocol: Document 10/21/25 09:10 [facility] (Rec: 10/21/25 13:00 [facility] OT ICA-Zubz-Leqhirn Comments OT Self-Feeding not a meal time Comments OT ADL-Grooming General Evaluation Grooming Ability Standby Assistance Comments OT Grooming Comments Brushes hair on setup while EOB OT ADL-Oral Care General Eval Oral Care Ability Standby Assistance OT ADL-Dressing General Eval Upper Body Dressing Minimal Assistance Ability Lower Body Dressing Minimal Assistance Ability Areas Needing Shoes Assistance Comments OT Dressing Comments Pt dons shoes (does not wear socks at home) with MIN A for L and S for R. Pt would benefit from LB AE education. MIN A to change gown after toileting. OT ADL-Toileting General Evaluation Toileting Ability Standby Assistance Comments OT Toileting Pt not wearing any clothing to manage, MIN A to manage Comments gown. Hygiene with S. OT ADL-Bathing Comments OT Bathing Comments Would benefit from performing while seated on shower chair. M5 OT- IP IADL's Start: 10/21/25 12:32 Freq: Status: Active Protocol: Document 10/21/25 09:10 [facility] OT-Instrumental Activities of Daily Living Deficits IADL Deficits Deficits Identified Home Safety Awareness Awareness of Need Good Awareness for Assistance at Home Ability to Problem Able to Problem Solve Solve Emergency Situations Medication Management Medication No Deficits Identified Management Money Management Money Management No Deficits Identified Meal Preparation Meal Preparation May benefit from short term assist. Comments Desk Editor Desk Editor Caregiver Provides Assist Driving Driving Comments May benefit from short term assist. M6 OT- IP Functional Cognition Start: 10/21/25 12:32 Freq: Status: Active Protocol: Document 10/21/25 09:10 [facility]Rec[facility] 10/21/25 [facility] Cognitive Factors Limiting Selfcare Function Cognitive Ability Level of Alertness Alert Patient Orientation Name,Month,Year,Place,Situation Attention Span Capable of Focused Attention,Capable of Sustained Ability Attention Ability to Follow Able to Follow One Step Commands,Able to Follow Multi- Commands Step Commands Memory Description No Deficits Noted Safety Awareness No Deficits Noted Problem Solving No deficits Noted Ability Executive Function No Deficits Noted Ability Abstract Thinking No Deficits Noted Ability OT- Vision and Hearing OT- Hearing Assessment OT- Hearing WFL Assessment OT- Vision Assessment Visual Acuity WFL,Glasses For Reading M7 OT- IP Mobility and Balance Start: 10/21/25 12:32 Freq: Status: Active Protocol: Document 10/21/25 09:10 [facility]Rec[facility] 10/21/25 [facility]00 [facility] OT- Bed Mobility Assessment Supine to Sit Supine to Sit Assist Contact Guard Assistance Scooting Scooting to Edge of Standby Assistance Bed OT-Transfer Assessment Sit to and From Stand Sit to and from Contact Guard Assistance Stand Transfers Transfer Ability Contact Guard Assistance,Minimal Assistance Technique Transfer Destination Chair,Toilet Devices Transfer Assistive Gait Belt,Front Wheeled Walker Devices Comments Mobility Comments Pt BP in supine 86/57 L, R 82/51; sitting 102/51; standing 90/60. Pt asymptomatic. Pt needs CGA for L LE during bed mobility. Pt with CGA for t/f to chair and MIN A for tf to toilet. OT- Gait Assessment Gait Gait Assistance Contact Guard Assist Required: Distance (Feet) 15 Able to Maintain Yes Weight Bearing Status During Gait Assistive Devices Assistive Device Gait Belt,Front Wheeled Walker Comments Gait Ability Pt amb from bed to bathroom and back to chair with CGA, Comments OT manages IV pole while pt manages FWW with good safety awareness. Pt reports that her L foot is numb ( this is pts baseline). Pt is very aware of it when amb and references paying attention to it as she steps several times. OT- Balance Assessment Sitting Balance and Reactions Static Sitting Normal Balance Ability Dynamic Sitting Good Balance Ability Standing Balance and Reactions Static Standing Good Balance Ability Dynamic Standing Fair Balance Ability M8 OT- IP Objective Assessments Start: 10/21/25 12:32 Freq: Status: Active Protocol: Document 10/21/25 09:10 [facility] (Rec: 10/21/25 13:00 [facility]) OT Gross Range of Motion Upper Extremity Range of Motion Assessment Right Impaired ROM Impairments R limited IR (pts baseline) OT Strength Upper Extremity Strength Assessment Within Functional Limits Hand Precipitator Supervisor Strength Hand Dominance Left OT-Muscle Tone Assessment Muscle Tone WNL Yes OT Sensation Assessment Edema Edema Comments Pt with lymphedema present in B LEs. This is pts baseline, pt reports no noticeable changes. M9 OT- IP Assessment and Plan Start: 10/21/25 12:32 Freq: Status: Active Protocol: Document 10/21/25 09:10 [facility] (Rec: 10/21/25 13:00 [facility]) OT Summary Assessment and Plan Potential Rehabilitation Excellent Potential Analytic Complexity Low at Evaluation Summary OT Impairments Balance,Functional Mobility,Grooming,Dressing,Toileting ,Bathing,Toilet Transfers,Shower Transfers,Activity Tolerance Progress Towards Progressing Toward Goals Goals Assessment Summary Pt is a 79 yo F with a hx of B LE lymphedema. Pt was admitted s/p L AMMON (anterior approach, NO ANTERIOR PRECAUTIONS) and is WBAT. Pt lives alone and was I with all BADLs, IADLs, driving, and community functions prior to sx. Pt has up to 6 steps to manage on dc home and uses a stool to step up into her bed. Pt presents with impaired BADL, decreased balance, and decreased functional mobility. Pt may benefit from LB AE for dressing. Skilled OT services are appropriate to address these deficits and to promote return towards PLOF. When medically stable for dc, recommend home with outpatient PT. Goals Grooming Goal Independent Dressing Goal Independent Toileting Goal Independent Bathing Goal Independent,Grab Bars Toilet Transfer Goal Independent,Raised Toilet Seat Shower Transfer Goal Independent,Shower Chair Days to Meet Goals 3 Frequency of Treatment Other frequency 5x/wk Treatment Plan OT Treatment Plan ADL Training,Functional Mobility,Therapeutic Exercises, Patient/Family Education,Discharge Planning Other Treatment LB AE, ADLs Recommendations and Next Treatment Focus Discharge Recommendations OT Discharge Home,Outpatient PT Recommendations Home Equipment Needs shower chair Transportation Needs Private Vehicle at Discharge
--- NOTE | 2025-10-21 13:02 | PM.PNPO.1 ---
Subjective Subjective Interval history: PROGRESS NOTE PATIENT SUMMARY: The patient, Padma Weathers, is seen postoperatively following a total hip replacement surgery performed yesterday for severe arthritis during which osteoporosis was noted so I used a cemented stem. PAST SURGICAL HISTORY: - Total hip replacement performed by myself yesterday SUBJECTIVE: The patient reports feeling well and denies feeling lightheaded when standing up. She humorously mentioned not being ready to do cartwheels yet but is improving. The patient has been practicing all her exercises diligently. She also mentioned a previous experience with low blood pressure post-surgery that required acute care. She expressed eagerness to return home and is looking forward to better food. PHYSICAL EXAM: 1) Constitutional: The patient is alert and oriented, displaying a positive mental status with a sense of humor. 2) Musculoskeletal: Examination of the left hip shows a ELIZABETH wound vac in place with a good seal and no strike through on the dressing. The patient has intact sciatic and femoral nerve function and can move her toes up and down without difficulty. Bruising noted on the shins from the boot, but it appears improved compared to yesterday. LABS: - Hemoglobin: 11 ASSESSMENT: Postoperative status after total hip replacement. She has had some asymptomatic hypotension. PLAN: - Restart Eliquis today - Continue Celebrex and Tylenol - Hold off on Metoprolol for several more days to avoid artificially lowering blood pressure - Monitor for signs of hypotension when standing - Encourage ambulation with a walker DISPOSITION: The patient is planned for discharge home today. FOLLOWUP: Follow up with [facility]. Exam Vital Signs (past 8 hours): - 10/21/25 05:39 10/21/25 06:45 10/21/25 08:14 Temperature 97.6 F 98.0 F Pulse Rate 94 H 100 H 94 H Respiratory Rate 16 16 16 Blood Pressure 98/50 L 110/54 L 91/48 L Pulse Oximetry 93 95 100 Oxygen Flow Rate 0 0 Oxygen Delivery Method Room Air Oxygen Flow Rate 0 Objective Labs 10/21/25 04:34 10/21/25 04:34 Labs: Laboratory Results - last 24 hr 10/21/25 04:34 WBC 7.3 RBC 3.27 L Hgb 11.0 L Hct 31.7 L MCV 97.1 MCH 33.7 MCHC 34.7 RDW 13.6 Plt Count 114 L Neut % (Auto) 71.8 Lymph % (Auto) 20.9 L Cataño % (Auto) 7.1 Eos % (Auto) 0.0 L Baso % (Auto) 0.2 Neut # (Auto) 5300 Lymph # (Auto) 1500 Cataño # (Auto) 500 Eos # (Auto) 0 Baso # (Auto) 0 Sodium 137 Potassium 4.5 Chloride 107 Carbon Dioxide 24 BUN 26 H Creatinine 0.93 Estimated GFR > 60 BUN/Creatinine Ratio 28.0 H Glucose 98 Calcium 8.7 PFSH Medical History (Updated 10/09/25 @ 13:22 by Xochitl Ramos, RN) Femur fracture, right ARTURO on CPAP Venous insufficiency Lymphedema TIA (transient ischemic attack) (04/2021) HTN (hypertension) HLD (hyperlipidemia) Afib Primary osteoarthritis of left hip Surgical History (Updated 10/09/25 @ 13:22 by Xochitl Ramos RN) S/P foot surgery, left History of open reduction and internal fixation (ORIF) procedure History of right hip replacement Hx of hysterectomy (1999) History of bilateral knee replacement S/P carpal tunnel release (2014) Social History household members: none Smoking Status: Former smoker alcohol intake: current Assessment & Plan Post-op Postoperative Procedures: Procedures Operation Date: 10/20/25 13:45 Actual Procedure Side Surgeon p Total Hip Arthroplasty/Anterior Approach Left Cameron Bishop MD Quality VTE Deep Vein Thrombosis/Pulmonary Embolism Present on Admission: No
[2025-10-21 14:00] VITALS: BP 98/51; PULSE 87
--- NOTE | 2025-10-21 14:41 | CM.DANOTE ---
DCP Assessment Note Brief pt is a 79yo F POD1 left total hip with Dr. Dario GONZALEZ reviewed EMR per chart, pt lives indep in [place]. has a walker/cane at home for post OP use. Per chart, OP PT already arranged. per chart, plan is for sister/neighbor to stay with her at DC. per RN and therapies, pt hypotensive during morning. getting fluids. will try and work with her in afternoon. per RN pt not symptomatic. per PT has some stairs at home that could be a barrier. per RN still things pt will dc home after working with PT (per surgeon) P: anticiapte dc home with OP f/u and family support. family to transport today. pending if BP improves. will continue to follow closely for DCP coordination CARLOS Romo Discharge Planning/Care Management CM Discharge Assessment Start: 10/20/25 16:39 Freq: Status: Active Protocol: Document 10/21/25 14:40 [facility] (Rec: 10/21/25 14:41 SL [id number]) Discharge Planning Assessment Assigned Discharge CARLOS [address] Repairer Provider Kari Nagel Insurance Medicare DPOA/Assigned will Bridges Designee Name Contact Information [phone] Advance Directives? Yes Advance Directives No on File History Provided By Patient Prior Living House Arrangements Household Members none Independent with ADL Yes 's Is patient alert and Yes oriented? Discharge Plan Home Referrals Initiated None needed Review Status In Process Please Provide Date 10/21/25 Initial DC Assessment Was Performed Next Review Type Continued Stay Review Pre-Anesthesia Assessment Start: 10/09/25 12:39 Freq: Status: Complete Protocol: Document 10/09/25 12:39 LB (Rec: 10/09/25 12:46 LB [id number]) Pre-Anesthesia Assessment Information obtained Phone via Height 170.18 cm Weight 88.451 kg Body Mass Index (BMI 30.5 ) Has patient seen a Yes specialist in last 12 months? If yes, specialist Natural Resource Manager,Orthopedist,Other seen Patient hospitalized No or treated in the ER in the last year? Patient experienced None in the last year Patient experienced No syncope or dizziness in the last year? Does patient have None history of Has patient ever had No a blood clot? Is patient on Yes anticoagulant therapy? If yes, Eliquis 5mg BID. anticoagulant name Patient advised to Yes hold this medication prior to surgery? If yes, please Advised to hold 3 days preop per cardiology. describe Does patient have a Yes marine equipment design engineer? If yes, marine equipment design engineer Dr Keith. name Was cardiac testing Yes performed? If yes, type 01/14 - echo. Does patient have No history of a pacemaker/ICD? Cardiac Clearance Yes Received Can patient climb a Yes flight of stairs without shortness of breath? Can patient walk Yes around the grocery store without shortness of breath? Does patient have None history of Does patient use No oxygen at home? Does patient have Yes history of Sleep Apnea? Patient uses CPAP/ Yes BiPAP? Cough or cold No: runny nose in the evenings symptoms in the past two weeks? Does patient have No any memory problems? Does patient have TIA history of History of weakness, No paralysis, or other residual effects of stroke/TIA? Mobility device(s) Cane used Comment Will bring walker. Has patient fallen Yes within the past year ? Does patient have a No neurostimulator or pain stimulator? Does patient have Yes chronic pain? If yes, where? Left hip, right shoulder. Does patient have No history of GERD? Special dietary Yes needs or difficulty swallowing? If yes, please Trouble swallowing liquids at times. describe Does patient have No history of kidney/ liver problems/ disease? Does patient have No Diabetes? HgbA1C 4.9 Date 05/16/25 GLP-1? Yes If yes, daily or Weekly. weekly? Does patient have No history of thyroid problems? Is patient ? No Is patient No ? Does patient have No history of cancer? Alcohol intake a few times a month Smoking status Former smoker Marijuana product No use? Does patient have Yes: Small mouth opening, nausea. history of anesthesia reactions ? Family history of Yes: Sisters - nausea for days. anesthesia reactions ? Patient/family No member history of Malignant Hyperthermia? Does patient have No history of a blood transfusion reaction ? Anesthesia Review No Requested Spiritual beliefs None. that may affect healthcare choices? Cultural practices None. that may affect healthcare choices? Patient has Advanced Yes Directive and/or Power of Pharmacy Intake Technician? Does patient have Yes assistance after surgery? Comment Emily - neighbors. Who is driving Emily - neighbor. patient home after surgery? Phone number [phone] Relationship to Friend patient PAC Instructions Assistance for 24 hours post-op,Bring CPAP/BIPAP,Do not shave/clip surgical site,Durable medical equipment, Medications to take/avoid,No ETOH/petroleum product on skin DOS,NPO,Post-op transportation,Pre-surgical wash, Sturdy shoes/comfortable clothes,Do not bring valuables and remove jewelry
--- NOTE | 2025-10-21 15:28 | PT.IPTN ---
Current Diagnoses Unilateral primary osteoarthritis, left hip (10/20/25) Surgery Performed Operation Date: 10/20/25 13:45 Actual Procedures p Total Hip Arthroplasty/Anterior Approach(Left) - Cameron Bishop MD Physical Therapy Treatment Note M2 PT-IP Current Condition Start: 10/21/25 12:38 Freq: NEEDED Status: Active Protocol: Document 10/21/25 11:28 DLM (Rec: 10/21/25 13:00 DLM Desktop) Physical Therapy Current Condition Current Condition Evaluation Date 10/21/25 Treatment Diagnosis left AMMON, anterior approach, impaired gait Onset Date 10/20/25 M3 PT-IP Subjective Start: 10/21/25 12:38 Freq: NEEDED Status: Active Protocol: Document 10/21/25 15:28 DLM (Rec: 10/21/25 15:45 DLM Desktop) Subjective Physical Therapy Visit Type Type Treatment Note Visit Start Time 14:50 Visit Stop Time 15:28 Notes 38 min Number of [employer] Visits 0 Physical Therapy Visit Comments Patient Comments She reports no nausea and no light-headedness Patient Goals Discharge home Therapy Pain Assessment Pain When Pain Assessed During Mobility Pain Present Pain Present Pain Reported Location left hip. Intensity 4 Scale Used Numeric (0 - 10) Description Aching,Tender,With Movement Pain Behaviors Guarding,Wincing Pain Management Apply Cold,Re-positioning Techniques M4 PT-IP Mobility and Gait Start: 10/21/25 12:38 Freq: NEEDED Status: Active Protocol: Document 10/21/25 15:28 DLM (Rec: 10/21/25 15:45 DLM Desktop) PT-Bed Mobility Assessment Supine to Sit Supine to Sit Independent Sit to Supine Sit to Supine Independent Scooting Scooting to Edge of Independent Bed PT-Transfer Assessment Sit to and From Stand Sit to and from Independent,Use of Upper Extremities Stand Equipment Transfer Assistive Gait Belt,Front Wheeled Walker Device Transfers Transfer Destination Bed,Chair Transfer Technique Stand Step Pivot Transfer Ability Level of Assist Independent,Use of Upper Extremities Comments Mobility Comments Pt has tall bed at home so training performed with elevated bed. Pt has difficulty getting LE's onto bed even with use of gait belt as left massage therapist. BP 98/62. HR 90 sitting in recliner this visit Gait Assessment Gait Gait Assistance Independent Required: Distance (Feet) 80 Able to Maintain Yes Weight Bearing Status During Gait Assistive Devices Assistive Device Gait Belt,Front Wheeled Walker Gait Deviations General Gait Pattern Antalgic,Decreased Stride Length,Step-to Gait Factors Limiting Gait Function Factors Limiting Decreased Activity Tolerance,Decreased Strength,Pain Gait Function Comments Gait Comments Pt reports left anterior hip pain with step-through gait pattern so pt educated to use a step-to pattern to manage her pain at this stage of her recovery. Stair Climbing Assessment Evaluation Level of Assist On Standby Assistance Stairs Devices Stair Climbing Left Railing,Right Railing Assistive Devices Technique/Endurance Stair Climbing Ascend and Descend Direction Stair Climbing Step to Step Technique Number of Steps 3 Climbed Stair Climbing Set # 1 Repetitions (reps) PT-Balance Assessment Sitting Balance and Reactions Static Sitting Normal Balance Ability Dynamic Sitting Good Balance Ability Standing Balance and Reactions Static Standing Good Balance Ability Dynamic Standing Good Balance Ability Device Used FWW M5 PT-IP Objective Assessments Start: 10/21/25 12:38 Freq: NEEDED Status: Active Protocol: Document 10/21/25 11:28 DLM (Rec: 10/21/25 13:00 DLM Desktop) Orientation Orientation/Cognition Level of Alertness Alert Orientation Name,Age,Birthday,Month,Date,Year,Day of Week,Place, Situation Language Function No Deficits Noted Ability Safety Awareness Understands Safety Issues Memory Description No Deficits Noted Gross Range of Motion Upper Extremity ROM Assessment Within Functional Limits Lower Extremity ROM Assessment Left Impaired Impairments limited by pain in hip s/p AMMON with anterior approach Strength Upper Extremity Strength Assessment Within Functional Limits Lower Extremity Strength Assessment Left Impaired Hip pain anterior hip, pt using UE's to help lift LE, hip flexion 2+/5 Knee knee ext 4/5 with quad soreness Coordination Assessment Gross Coordination Gross Coordination WNL Sensation Assessment Sensation Gross Sensation Left LE Impaired Proprioception ( Impaired Position) Sensation Numbness Description Comments Sensation Comments chronic numbness in left LE, pt reports it is difficult to feel where her left LE is when ambulating, pt reports numbness in left thigh area is a little worse than baseline since surgery Muscle Tone Muscle Tone WNL Yes Other Assessments Other Other Assessments pt has a hx of lymphedema M6 PT-IP Treatment Start: 10/21/25 12:38 Freq: NEEDED Status: Active Protocol: Document 10/21/25 15:28 DLM (Rec: 10/21/25 15:45 DLM Desktop) Physical Therapy Treatment Education Education Provided Safety Other Treatments Other Treatment reviewed HEP and provided education to decrease her Performed fall risks M7 PT-IP Assessment and Plan Start: 10/21/25 12:38 Freq: NEEDED Status: Active Protocol: Document 10/21/25 15:28 DLM (Rec: 10/21/25 15:45 DLM Desktop) PT Summary Assessment and Plan Summary Impairments Pain,ROM,Strength,Sensation,Bed Mobility,Transfers,Gait ,Activity Tolerance Progress Towards Safe For Discharge Goals Assessment Summary Padma is alert and sitting up in the recliner. Her blood pressure shows a small improvement this afternoon. Pt is asymptomatic. She demonstrates a safe gait pattern with use of FWW. She was able to go up/down 3 stairs with bilateral rails with step-to pattern with stand by assist and someone to manage her FWW. Her Neighbor friend is here this visit and will be with her to help get into the house. The patient has a tall bed for her which is more challenging for her to get her LE's into the bed. She was able to complete it with a leg massage therapist but also discussed the pt using another bed at home to make this less challenging for her. Pt is eager to discharge home today. She has progressed well enough with her mobility and gait to be safe for discharge home with family/friend assistance. Notified her nurse that she is cleared for discharge home today. Goals Bed Mobility Goal Independent Transfer Goal Independent,Front Wheeled Walker Gait Goal Independent,Front Wheel Walker Gait Distance 150 feet Other Goals Up/down 2 steps with bilateral rails and SBA Days to Meet Goals 2 Frequency of Treatment Frequency Of Discharge Treatment Treatment Plan Physical Therapy Bed Mobility Training,Transfer Training,Gait Training, Treatment Plan Therapeutic Exercise,Balance Retraining,Post Op Education,Discharge Planning,Hot or Cold Pack Precautions Other Precautions No hip precautions ordered by surgeon Low Blood pressure post-op Weight Bearing Status Weight Bearing Weight Bear as Tolerated Status Allowed Weight left LE with FWW Bearing Amount ( enter % or #) (%) Recommendations To Nursing Amount of Assist Standby Assistance Needed Discharge Recommendations PT Discharge Home with Assistance,Outpatient PT Recommendations Other Discharge Friends and family to help Recommendations Transportation Needs Private Vehicle at Discharge - PT assist 1
--- NOTE | 2025-10-21 15:52 | PC.NURSE ---
Dayshift note: Up OOB to BR and ambulated in hallway. Voiding, tolerating diet. ELIZABETH dressing CDI. Stair training performed with Shira NEWTON, well tolerated. Pain relief adequately provided PRN.
--- NOTE | 2025-10-21 16:24 | PC.NURSE ---
Discharge note: Discussed importance of F/U with Ortho in two weeks, antibiotic adherence, and signs of worsening symptoms. Educated regarding mobility precautions, dressing care and home safety. Patient verbalized understanding of instructions. Home via private vehicle, accompanied by friend/neighbor (caregiver trainee). Rx to be picked up on their way home.
== END 2025-10-21 16:30 | disposition home or self-care (01) ==
LOC: OR 11:52 → AC 16:28
PROVIDERS: Physician Assistant Surgical; Family Provider Physician Assistant Medical; PCP Physician Assistant Medical; Referring Provider Orthopaedic Surgery Adult Reconstructive Orthopaedic Surgery; Visit Provider Orthopaedic Surgery Adult Reconstructive Orthopaedic Surgery
PROC: (CPT 27130; principal; 2025-10-20 13:45)
DX: M16.12 Unilateral primary osteoarthritis, left hip (principal); M81.0 Age-related osteoporosis without current pathological fracture; M25.752 Osteophyte, left hip; G47.33 Obstructive sleep apnea (adult) (pediatric); I10 Essential (primary) hypertension; Z86.73 Personal history of transient ischemic attack (TIA), and cerebral infarction without residual deficits; I89.0 Lymphedema, not elsewhere classified; I87.2 Venous insufficiency (chronic) (peripheral)
CPT/HCPCS: 27130; 36415; 73502; 76000; 80048; 85025; 97110; 97116; 97162; 97165; 97530; C1776; C1713; J0165; J0330; J0689; J1100; J1171; J1885; J2405; J2704; J3010; J7050; J7120